=== PATIENT | male | born 1985 | race African-American/Black ===

== ENCOUNTER 2024-05-18 15:18 | Emergency (ER) | payer MEDICAID, SELFPAY ==
[2024-05-18] VITALS (7 sets, daily range): BP systolic 137–179; BP diastolic 88–110; PULSE 96–118; RESP 20–22; TEMP 36.3; O2SAT 97–100; BMI 30.2
[2024-05-18] MEDS: 0.9 % SODIUM CHLORIDE 1000 ml 1,000 ML IV ×2 (15:45→17:15)
[2024-05-18 15:49] LABS: Appearance Urine Clear (Clear); Bilirubin Urine Negative (Negative); Blood Urine Negative (Negative); Color Urine Yellow (Yellow); Glucose Urine 2+ (Negative); Ketones Urine Negative (Negative); Leukocyte Esterase Urine Negative (Negative); Nitrite Urine Negative (Negative); Protein Urine Negative (Negative); Urobilinogen Urine 0.2 (0.2-1.0); pH Urine 5.5 (5.0-8.5)
--- NOTE | 2024-05-18 15:49 | ED.GENADULT ---
HPI - General Adult General Chief complaint: Diabetic Related Problem Stated complaint: diabetic, blood sugar issue, high blood pressure Time Seen by Provider: 05/18/24 15:24 History of Present Illness HPI narrative: This 38-year-old male has type 1 diabetes depended on insulin. He states that he has been taking his insulin but over the past couple days he has had nausea, vomiting, and diarrhea. He reports dry mouth and increased urinating. He states that he does normally check his glucose but his glucometer is not working. He arrives here with glucose at 544. He has increased heart rate but is not doing any Kussmaul breathing. Related Data Home Medications ?Medication ?Instructions ?Recorded ?Confirmed amlodipine 10 mg tablet 10 mg PO DAILY 05/18/24 05/18/24 insulin aspart U-100 10 - 15 sliding scale dose .ROUTE 05/18/24 insulin glargine 100 unit/mL (3 15 unit subcut QPM 05/18/24 05/18/24 mL) subcutaneous pen (Lantus Solostar U-100 Insulin) losartan 100 1 tab PO DAILY 05/18/24 05/18/24 mg-hydrochlorothiazide 25 mg tablet (Hyzaar) Allergies Allergy/AdvReac Type Severity Reaction Status Date / Time No Known Drug Allergies Allergy Verified 05/18/24 15:30 Review of Systems Status of ROS: Reports: 10 or more systems reviewed and unremarkable except as noted in History and below Narrative: Constitutional: No fevers, no weight gain or loss. Eyes: No discharge. No vision changes. HENT: No congestion, no sore throat, no ear pain. Dry mouth. Cardiovascular: No chest pain, no palpitations. Respiratory: No shortness of breath, no wheezes, no cough. Gastrointestinal: No abdominal pain. Vomiting and diarrhea. Genitourinary: No hematuria. Increased frequency of urinating. Musculoskeletal: Normal range of motion. Skin: No rashes, no pruritis. Neurological: No dizziness, weakness, sensory change, speech change. Endo/Heme/Allergies: No bruising or bleeding. No polydipsia. Pysch: no suicidality, no anxiety, no insomnia. All other systems reviewed and are negative. Exam Narrative: Exam Narrative: Constitutional: Well-developed, well-nourished, no acute distress. HEENT: Normocephalic, atraumatic. Neck: Normal range of motion. Nontender. Supple. Heart: Regular. No murmurs. Tachycardia. Intact distal pulses. Lungs: Clear to auscultation. No chest discomfort. No wheezes, rhonchi, or rales. Abdomen: Normal bowel sounds. Nontender. No rebound tenderness. Genitalia: Deferred. Back: No midline tenderness. Normal range of motion. Extremities: Normal range of motion. No injury. Skin: Intact. No rash. Warm. No erythema or pallor. Neurologic: No altered sensation. No weakness. Alert and oriented. Psychiatric: No suicidality. No anxiety or depression. No insomnia. Nursing notes and vitals signs are reviewed. Const: Vital Signs, click to edit/add: Vital Signs - 24 hr 05/18/24 15:25 05/18/24 15:50 05/18/24 16:01 Temperature 97.3 F L Pulse Rate 108 H 110 H Pulse Rate [Pulse Oximeter] 118 H Respiratory Rate 20 Blood Pressure 179/89 H 172/110 H Blood Pressure [Ri ght Upper Arm] 173/88 H Pulse Oximetry 97 99 100 Oxygen Delivery Me thod Room Air 05/18/24 16:31 05/18/24 17:01 05/18/24 17:30 Temperature Pulse Rate 106 H 109 H 101 H Pulse Rate [Pulse Oximeter] Respiratory Rate 22 Blood Pressure 154/99 H 137/91 H Blood Pressure [Ri ght Upper Arm] Pulse Oximetry 100 99 100 Oxygen Delivery Me thod Course Vital Signs Vital signs: Initial Vital Signs Temperature 97.3 F L 05/18/24 15:25 Temperature Source Temporal Artery Scan 05/18/24 15:25 Pulse Rate 118 H 05/18/24 15:25 Respiratory Rate 20 05/18/24 15:25 Blood Pressure 173/88 H 05/18/24 15:25 Blood Pressure Mean 116 H 05/18/24 15:25 Blood Pressure Position Sitting 05/18/24 15:25 Pulse Oximetry 97 05/18/24 15:25 Oxygen Delivery Method Room Air 05/18/24 15:25 Vital Signs Temperature 97.3 F L 05/18/24 15:25 Pulse Rate 118 H 05/18/24 15:25 Respiratory Rate 20 05/18/24 15:25 Blood Pressure 173/88 H 05/18/24 15:25 Pulse Oximetry 97 05/18/24 15:25 Oxygen Delivery Method Room Air 05/18/24 15:25 Temperature 97.3 F L 05/18/24 15:25 Pulse Rate 101 H 05/18/24 17:30 Respiratory Rate 22 05/18/24 16:31 Blood Pressure 137/91 H 05/18/24 17:01 Pulse Oximetry 100 05/18/24 17:30 Oxygen Delivery Method Room Air 05/18/24 15:25 Medications Administered Medications: Generic Name Dose Route Start Last Admin Trade Name Freq PRN Reason Stop Dose Admin Sodium Chloride 1,000 mls @ 1,000 mls/hr 05/18/24 17:15 05/18/24 17:15 0.9 % Sodium Chloride 1000 Ml IV 05/18/24 18:14 1,000 mls/hr .Q1H CARTER Administration Discontinued Medications Generic Name Dose Route Start Last Admin Trade Name Freq PRN Reason Stop Dose Admin Sodium Chloride 1,000 mls @ 1,000 mls/hr 05/18/24 16:00 05/18/24 16:45 0.9 % Sodium Chloride 1000 Ml IV 05/18/24 16:59 Infused .Q1H CARTER Infusion Insulin Human Regular 10 unit 05/18/24 15:47 05/18/24 15:55 Insulin Regular, Human 100 Unit/Ml Vial IVP 05/18/24 15:48 10 unit ONCE ONE Administration Ondansetron HCl 4 mg 05/18/24 15:47 05/18/24 15:56 Ondansetron 2 Mg/Ml Inj IVP 05/18/24 15:48 4 mg ONCE ONE Administration Medical Decision Making [facility] Narrative Medical decision making narrative: This patient comes in reporting vomiting and diarrhea along with elevated glucose. He does arrive with increased heart rate at 118 beats per minute. An IV was established where he did receive a total of 2 L of normal saline. His venous blood glass shows normal pH and his bicarb just slightly down at 18. He is not showing signs of ketoacidosis. His initial glucose was around 570. He did received 10 units of regular insulin and the glucose is recheck to after getting a L of fluids in returned at 185. The patient states that he is feeling better. He is interested in taking some food so he did receive something to eat here. He is okay to be discharged home. Lab Data Labs: Lab Results 05/18/24 05/18/24 05/18/24 Range/Units 15:25 15:40 15:49 WBC 11.24 H (4.50-11.00) K/uL RBC 4.67 (4.30-5.90) m/uL Hgb 14.9 (13.5-17.5) gm/dL Hct 42.5 (37.0-53.0) % MCV 91 (80-100) fL MCH 32 (26-34) pg MCHC 35 (32-36) gm/dL RDW Coeff of Marcio 13.1 (11.5-15.5) % Plt Count 551 H (140-440) K/uL Neut % (Auto) 82.6 H (42.0-72.0) % Lymph % (Auto) 8.8 L (20-44) % Ada % (Auto) 7.1 (0.0-11.0) % Eos % (Auto) 0.4 (0.0-7.0) % Baso % (Auto) 0.7 (0.0-3.0) % Neut # (Auto) 9.30 H (1.7-7.0) K/uL Lymph # (Auto) 1.00 (0.90-2.90) K/uL Ada # (Auto) 0.80 (0.00-0.90) K/UL Eos # (Auto) 0.00 (0.00-0.50) K/uL Baso # (Auto) 0.10 (0.00-0.30) K/uL Abs Immat Gran (auto) 0.00 (0.00-0.30) K/uL Imm/Tot Granulo (auto) 0.4 % VBG pH 7.420 (7.32-7.43) VBG pCO2 35 L (40-50) mmHG VBG pO2 82.6 H (25-47) mmHG VBG HCO3 23 (21-28) mmol/L Sodium 127 L (135-149) mmol/L Potassium 5.3 H (3.6-5.1) mmol/L Chloride 94 L (96-114) mmol/L Carbon Dioxide 18 L (20-32) mmol/L Anion Gap 15 (7-15) mEq/L BUN 22 (5-24) mg/dL Creatinine 0.8 (0.5-1.5) mg/dL Estimated Creat Clear 134.72 Estimated GFR 115 ml/min Glucose 578 H* (60-115) mg/dL Calcium 8.5 (8.4-10.6) mg/dL Magnesium 2.0 (1.5-2.6) mg/dL Urine Color Yellow (Yellow) Urine Appearance Clear (Clear) Urine pH 5.5 (5.0-8.5) Ur Specific [place] 1.010 (1.000-1.030) Urine Protein Negative (Negative) Urine Glucose (UA) 2+ A (Negative) Urine Ketones Negative (Negative) Urine Blood Negative (Negative) Urine Nitrite Negative (Negative) Urine Bilirubin Negative (Negative) Urine Urobilinogen 0.2 (0.2-1.0) Ur Leukocyte Esterase Negative (Negative) Urine RBC 0-2 (0-2) Urine WBC 0-2 (0-5) Ur Squamous Epith Cells None (None-Few) Urine Bacteria None (None) POC Glucose 544 H* (60-115) mg/dl 05/18/24 05/18/24 Range/Units 15:49 17:05 WBC (4.50-11.00) K/uL RBC (4.30-5.90) m/uL Hgb (13.5-17.5) gm/dL Hct (37.0-53.0) % MCV (80-100) fL MCH (26-34) pg MCHC (32-36) gm/dL RDW Coeff of Marcio (11.5-15.5) % Plt Count (140-440) K/uL Neut % (Auto) (42.0-72.0) % Lymph % (Auto) (20-44) % Ada % (Auto) (0.0-11.0) % Eos % (Auto) (0.0-7.0) % Baso % (Auto) (0.0-3.0) % Neut # (Auto) (1.7-7.0) K/uL Lymph # (Auto) (0.90-2.90) K/uL Ada # (Auto) (0.00-0.90) K/UL Eos # (Auto) (0.00-0.50) K/uL Baso # (Auto) (0.00-0.30) K/uL Abs Immat Gran (auto) (0.00-0.30) K/uL Imm/Tot Granulo (auto) % VBG pH (7.32-7.43) VBG pCO2 (40-50) mmHG VBG pO2 (25-47) mmHG VBG HCO3 (21-28) mmol/L Sodium (135-149) mmol/L Potassium (3.6-5.1) mmol/L Chloride (96-114) mmol/L Carbon Dioxide (20-32) mmol/L Anion Gap (7-15) mEq/L BUN (5-24) mg/dL Creatinine (0.5-1.5) mg/dL Estimated Creat Clear Estimated GFR ml/min Glucose (60-115) mg/dL Calcium (8.4-10.6) mg/dL Magnesium Cancelled (1.5-2.6) mg/dL Urine Color (Yellow) Urine Appearance (Clear) Urine pH (5.0-8.5) Ur Specific [place] (1.000-1.030) Urine Protein (Negative) Urine Glucose (UA) (Negative) Urine Ketones (Negative) Urine Blood (Negative) Urine Nitrite (Negative) Urine Bilirubin (Negative) Urine Urobilinogen (0.2-1.0) Ur Leukocyte Esterase (Negative) Urine RBC (0-2) Urine WBC (0-5) Ur Squamous Epith Cells (None-Few) Urine Bacteria (None) POC Glucose 185 H (60-115) mg/dl Discharge Plan Discharge Clinical Impression: Gastroenteritis, Hyperglycemia Patient Disposition: Home, Self-Care Condition: Improved Additional Instructions: Continue current plans. Follow up with MD return if worsening. Prescriptions: No Action losartan-hydrochlorothiazide [Hyzaar] 100-25 mg tablet 1 tab PO DAILY amlodipine 10 mg tablet 10 mg PO DAILY insulin aspart U-100 [Novolog FlexPen U-100 Insulin] 10 - 15 sliding scale dose .ROUTE insulin glargine [Lantus Solostar U-100 Insulin] 100 unit/mL (3 mL) insulin pen 15 unit subcut QPM Follow Up/Referrals: Provider,Not a Local [Primary Care Provider] - Stand Alone Forms: MyHealth Info Instructions
[2024-05-18 15:54] LABS: HCO3 VBG 23 mmol/L (21-28); PCO2 VBG 35 mmHG (40-50); PO2 VBG 82.6 mmHG (25-47)
[2024-05-18 15:55] LABS: Basophils Percent Auto 0.7 % (0.0-3.0); Eosinophils Percent Auto 0.4 % (0.0-7.0); Hematocrit 42.5 % (37.0-53.0); Hemoglobin* 14.9 gm/dL (13.5-17.5); Immature Granulocytes Pct Auto 0.4 %; Lymphocytes Percent Auto 8.8 % (20-44); Mean Corpuscular HGB Conc 35 gm/dL (32-36); Mean Corpuscular Hemoglobin 32 pg (26-34); Mean Corpuscular Volume 91 fL (80-100); Monocytes Percent Auto 7.1 % (0.0-11.0); Neutrophils Percent Auto 82.6 % (42.0-72.0); Platelet Count* 551 K/uL (140-440); RDW Coefficient of Variation % 13.1 % (11.5-15.5); Red Blood Count 4.67 m/uL (4.30-5.90); White Blood Count* 11.24 K/uL (4.50-11.00)
[2024-05-18] MEDS: INSULIN REGULAR, HUMAN 100 UNIT/ML VIAL 10 UNIT IVP (15:55)
[2024-05-18 15:56] LABS: Slide Review Reflex No
[2024-05-18] MEDS: ONDANSETRON 2 MG/ML inj 4 MG IVP (15:56)
[2024-05-18 16:09] LABS: Chloride* 94 mmol/L (96-114); Potassium* 5.3 mmol/L (3.6-5.1); Sodium* 127 mmol/L (135-149)
[2024-05-18 16:10] LABS: RBC Urine 0-2 (0-2); WBC Urine 0-2 (0-5)
[2024-05-18 16:12] LABS: Anion Gap 15 mEq/L (7-15); Blood Urea Nitrogen* 22 mg/dL (5-24); Carbon Dioxide* 18 mmol/L (20-32); Creatinine* 0.8 mg/dL (0.5-1.5); Est. Creatinine Clearance* 134.72; Estimated Glomerular Filt Rate 115 ml/min
[2024-05-18 16:13] LABS: Calcium* 8.5 mg/dL (8.4-10.6)
[2024-05-18 16:16] LABS: Glucose* 578 mg/dL (60-115)
[2024-05-18 16:17] LABS: Glucose, Point-of-Care* 544 mg/dl (60-115)
--- OUTSIDE RECORDS SUMMARY | 2024-05-18 16:36 | XMS_ITS | Encounter Summary ---
Author Organization [facility] Address [address] [place] [id number] Care Team Providers Care Cnc Machinist Name Role Phone Orin Monk MD Unavailable [phone] Alicia Corbett MD Unavailable Guillermina Victoria RN Unavailable Liz Hendrix RD Unavailable [phone] Rowan Barry MD Unavailable Guillermina Victoria RN Unavailable No Ref-Primary, Physician Primary Care Provider Meliza Buchanan PA-C Unavailable [phone] Александр Scott MD Unavailable Harmony Maldonado MD Unavailable [phone] Reason for Visit * Reason Onset Date Comments Glucose 05/16/2024 Glucose data for 05/18 appt Encounter Details Date Type Department Care Team (Late st Contact Info) Description 05/16/2024 Telephone [facility] [address] [place] [address] Rowan Barry MD [address] [place] [id number] Glucose (Glucose data for 05/18 appt ) Social History Tobacco Use Types Packs/Day Years Used Date Smoking Tobacco: Former Cigarettes 0.3 15 1 05/28/1998 - 03/27/2014 Smokeless Tobacco: Former Alcohol Use Standard Drinks/Week Comments Not Currently 0 (1 standard drink = 0.6 oz pure alcohol) used to drink a couple beers infrequently but has now stopped PHQ-2 Answer Date Recorded PHQ-2 Score 0 04/28/2018 Adolescent Education Answer Date Record ed Getting School Help Needed Not on file 02/03 Sex and Gender Information Value Date Recorded Sex Assigned at Not on file Legal Sex Male 4:39 AM SEAM CHECKER Gender Identity Not on file Sexual Orientation Not on file documented as of this encounter Miscellaneous Notes * Telephone Encounter - Aleksandra Infante CMA - 05/17/2024 10:49 AM SEAM CHECKER Spoke with patient. Pt is out of states and will be unable to keep virtual appt for 05/18/24. Pt requested to cancel appt. Appt canceled per patient's request. Pt would like a call back to reschedule.Forwarded message to clinic coordinators. Aleksandra Infante CMA on 05/17/2024 at 10:50 AM CHECKER CHECKER * Telephone Encounter - Aleksandra Infante CMA - 05/16/2024 1:50 PM SEAM CHECKER Called patient and no answer. Unable to LVM. VM full. Patient has an appointment on 05/18/24 . Need to collect the last 14 days worth of blood sugar readings to prepare for patient's visit. Aleksandra Infante MA CHECKER documented in this encounter Plan of Treatment Not on file documented as of this encounter Visit Diagnoses Not on filedocumented in this encounter Care Teams Cnc Machinist Relationship Specialty Start Date End Date No Ref-Primary, Physician PCP - General 02/24/23 [place] [address] [place] [address] Internal Medicine 03/27/16 Alicia Corbett MD [address] [place] [address] MD Ophthalmology 03/27/16 Guillermina Victoria, RN [address] [place] [address] [id number] Diabetes Education 03/27/[address] [place] [address] [id number] Registered Dietitian Nutrition 03/27/16 Rowan Barry MD [address] [place] [address] [id number] INTERNAL MEDICINE - ENDOCRINOLOGY, DIABETES & METABOLISM 03/27/16 Guillermina Victoria, RN [address] [place] [address] [id number] Birth Certificate Clerk Diabetes Education 12/26/20 Meliza Buchanan PA-C [address] [place] [address] Physician Flexo Operator Dermatology 04/29/23 Александр Scott MD [facility] [address] [place], [place] [address] Referring Physician Emergency Medicine 04/29/23 aHrmony Maldonado MD [address] [place] [id number] Hospitalist Internal Medicine 11/23/23 documented as of this encounter
--- OUTSIDE RECORDS SUMMARY | 2024-05-18 16:36 | XMS_ITS | Referral Summary ---
Author Organization [facility] Address [address] [place] [id number] Care Team Providers Care Museum Librarian Name Role Phone Orin Monk MD Unavailable Alicia Corbett MD Unavailable [phone] Guillermina Victoria RN Unavailable [phone] Unavailable [phone] Rowan Barry MD Unavailable Guillermina Victoria RN Unavailable No Ref-Primary, Physician Primary Care Provider Meliza Buchanan PA-C Unavailable [phone] Александр Scott MD Unavailable Harmony Maldonado MD Unavailable [phone] Encounters Date Type Department Care Team Description 05/16/[address] [facility] [address] [address] Rowan Barry MD Glucose (Glucose data for 05/18 appt ) 05/06/[address] [facility] [address] [address] Aleksandra Infante CMA 04/28/2024 Travel 04/28/2024 3:22 PM MODEL BUILDER DISPLAY - 04/28/2024 10:51 PM MODEL BUILDER DISPLAY Emergency [facility] [address] [place] [address] Santos Berry MD Goodman, Taye Padron MD Hyperglycemia; Nausea and vomiting, unspecified vomiting type; Hypertension, unspecified type; Encounter for medication refill Discharge Disposition: Home or Self Care from Last 3 Months Allergies No known active allergies Medications blood glucose monitoring (ACCU-CHEK FASTCLIX) lancetsIndicati ons:Type 1 diabetes mellitus without complication (H) Use to test blood sugar 3 times daily or as directed. Ok to substitute alternative if insurance prefers. 1 Box prn 016 Active blood glucose monitoring (ACCU-CHEK PEPPER SMARTVIEW) meter device kitIndications: Type 1 diabetes mellitus without complication (H) Use to test blood sugar 3 times daily or as directed. Ok to substitute alternative if insurance prefers. 1 kit 0 016 Active blood glucose monitoring (ACCU-CHEK SMARTVIEW) test stripIndication s:Type 1 diabetes mellitus without complication (H) Use to test blood sugar 3 times daily or as directed. Ok to substitute alternative if insurance prefers. 100 strip prn 016 Active ASPIRIN NOT PRESCRIBED (INTENTIONAL) Antiplatelet medication not prescribed intentionally due to Not indicated based on age Active STATIN NOT PRESCRIBED, INTENTIONAL, Statin not prescribed intentionally due to age Active insulin syringe-needle U-100 (BD INSULIN SYRINGE ULTRAFINE) 30G X 1/2 0.5 ML miscellaneousIn dications:Type 1 diabetes mellitus without complication (H) Use as directed. 100 each 3 024 Active insulin glargine (LANTUS PEN) 100 UNIT/ML penIndications: Type 1 diabetes mellitus without complication (H) Inject 20 Units subcutaneously every morning. 15 mL 1 024 Active pantoprazole (PROTONIX) 40 MG EC tabletIndicatio ns:Vomiting, unspecified vomiting type, unspecified whether nausea present Take 1 tablet (40 mg) by mouth every morning (before breakfast). 30 tablet 024 Active amLODIPine (NORVASC) 10 MG tablet Take 1 tablet (10 mg) by mouth daily. 30 tablet 025 Active losartan-hydroc hlorothiazide (HYZAAR) 100-25 MG tablet Take 1 tablet by mouth daily. 30 tablet 025 Active insulin aspart (NOVOLOG PEN) 100 UNIT/ML pen Inject 1 Units subcutaneously 3 times daily (with meals). 15 mL 025 Active amLODIPine (NORVASC) 5 MG tabletIndicatio ns:Hypertension , unspecified type Take 2 tablets (10 mg) by mouth daily. 60 tablet 024 2024 Discontinued insulin aspart (NOVOLOG FLEXPEN) 100 UNIT/ML penIndications: Type 1 diabetes mellitus without complication (H) Take 1 unit per 10 grams of carbs plus 1 unit if between 150-170 and 2 units if over 170. Three times with meals 12 mL 3 024 2024 Discontinued losartan-hydroc hlorothiazide (HYZAAR) 100-25 MG tabletIndicatio ns:Type 1 diabetes mellitus without complication (H) Take 1 tablet by mouth daily. 30 tablet 024 2024 Discontinued Active Problems Problem Noted Date Diagnosed Date Hyponatremia 01/05/2024 Diabetic ketoacidosis withou t coma associated with type 1 diabetes mellitus 11/19/2023 Vomiting, unspecified vomiti ng type, unspecified whether nausea present 11/19/2023 Hyperglycemia 12/21/2020 Hypertension, unspecified type 12/21/2020 Hyperkalemia 12/21/2020 DKA (diabetic ketoacidoses) 05/02/2019 Overview (01/18/2021): Replacing diagnoses that were inactivated after the 01/18/2021 regulatory import. 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 Provider to review Immunizations Name Administration Dates Next Due HEPA 08/06/2015 Influenza (IIV3) PF 03/27/2016 Meningococcal ACWY (Menveo ) 08/06/2015 Pneumococcal 23 valent 03/27/2016 TD,PF 7+ (Tenivac) 04/20/2003 TDAP Vaccine (Adacel) 08/06/2015 Typhoid IM 08/06/2015 Yellow Fever 08/06/2015 Social History Tobacco Use Types Packs/Day Years [...] on file Legal Sex Male 4:39 AM MODEL BUILDER DISPLAY Gender Identity Not on file Sexual Orientation Not on file Last Filed Vital Signs Vital Sign Reading Time Taken Comments Blood Pressure 191/109 04/28/2024 10:49 PM MODEL BUILDER DISPLAY Pulse 105 04/28/2024 10:00 PM MODEL BUILDER DISPLAY Temperature 36.9 C (98.5 F) 04/28/2024 3:21 PM MODEL BUILDER DISPLAY Respiratory Rate 18 04/28/2024 5:31 PM MODEL BUILDER DISPLAY Oxygen Saturation 98% 04/28/2024 10: 00 PM MODEL BUILDER DISPLAY Inhaled Oxygen Concentration - - Weight 103.7 kg (228 lb 9.9 oz) 04/28/2024 3:18 PM MODEL BUILDER DISPLAY Height 182.9 cm (6') 04/28/2024 3:18 PM MODEL BUILDER DISPLAY Body Mass Index 31.01 04/28/2024 3:18 PM MODEL BUILDER DISPLAY Plan of Treatment Not on file Procedures Procedure Name Priority Date/Time Associated Diagnosis Comments LACTIC ACID WHOLE BLOOD STAT 04/28/2024 9:02 PM MODEL BUILDER DISPLAY ISTAT GASES LACTATE VENOUS POCT STAT 04/28/2024 6:35 PM MODEL BUILDER DISPLAY ISTAT BASIC CHEM ICA HEMATOCRIT POCT STAT 04/28/2024 6:35 PM MODEL BUILDER DISPLAY EKG 12-LEAD, TRACING ONLY STAT 04/28/2024 3:34 PM MODEL BUILDER DISPLAY CBC WITH PLATELETS & DIFFERENTIAL STAT 04/28/2024 3:32 PM MODEL BUILDER DISPLAY TROPONIN T, HIGH SENSITIVITY STAT 04/28/2024 3:32 PM MODEL BUILDER DISPLAY EXTRA RED TOP TUBE STAT 04/28/2024 3: 32 PM MODEL BUILDER DISPLAY EXTRA BLUE TOP TUBE STAT 04/28/2024 3 :32 PM MODEL BUILDER DISPLAY CBC WITH PLATELETS AND DIFFERENTIAL STAT 04/28/2024 3:32 PM MODEL BUILDER DISPLAY EXTRA TUBE STAT 04/28/2024 3:32 PM MODEL BUILDER DISPLAY BLOOD GAS VENOUS STAT 04/28/2024 3:32 PM MODEL BUILDER DISPLAY KETONE BETA-HYDROXYBUTYRATE QUANTITATIVE, RAPID STAT 04/28/2024 3:32 PM MODEL BUILDER DISPLAY BASIC METABOLIC PANEL STAT 04/28/2024 3:32 PM MODEL BUILDER DISPLAY GLUCOSE BY METER STAT 04/28/2024 3:26 PM MODEL BUILDER DISPLAY HEMOGLOBIN A1C STAT 01/05/2024 7:36 PM CDT ALBUMIN RANDOM URINE QUANTITATIVE Routine 03/27/2016 9:52 AM MODEL BUILDER DISPLAY Screening for diabetic peripheral neuropathy Need for prophylactic vaccination against Streptococcus pneumoniae (pneumococcus) LIPID PROFILE Routine 03/25/2016 10:01 AM MODEL BUILDER DISPLAY Type 1 diabetes mellitus without complication (H) from Last 3 Months or Most Recently Relevant to Health Maintenance Results * Lactic acid whole blood (04/28/2024 9:02 PM MODEL BUILDER DISPLAY) Lactic Acid 1.5 0.7 - 2.0 mmol/L 04/28/2024 9:10 PM MODEL BUILDER DISPLAY [facility] Blood BLOOD SPECIMEN / Unknown Venipuncture / Unknown 04/28/2024 9:02 PM MODEL BUILDER DISPLAY 04/28/2024 9:06 PM MODEL BUILDER DISPLAY us Santos Berry MD LAB - BLOOD ORDERABLES Final Res ult LABORATORY [facility] [address] Lab (1st floor, no room number) [place] [address], [facility] * (ABNORMAL) iStat Basic Chem ICA Hematocrit, POCT (04/28/2024 6:35 PM MODEL BUILDER DISPLAY) Pathologist [facility] Chloride POCT 98 94 - 109 mmol/L 04/28/2024 6:42 PM MODEL BUILDER DISPLAY LABORATORY POC Potassium POCT 5.7(H) 3.4 - 5.3 mmol/L 04/28/2024 6:42 PM MODEL BUILDER DISPLAY [facility] POC Sodium POCT 135 135 - 145 mmol/L 04/28/2024 6:42 PM MODEL BUILDER DISPLAY [facility] POC UREA NITROGEN POCT 22 7 - 30 mg/dL 04/28/2024 6:42 PM MODEL BUILDER DISPLAY [facility] POC Calcium, Ionized Whole Blood POCT 4.3(L) 4.4 - 5.2 mg/dL 04/28/2024 6:42 PM MODEL BUILDER DISPLAY [facility] POC Glucose Whole Blood POCT 122(H) 70 - 99 mg/dL 04/28/2024 6:42 PM MODEL BUILDER DISPLAY [facility] POC Anion Gap POCT 16.0(H) 3.0 - 14.0 mmol/L 04/28/2024 6:42 PM MODEL BUILDER DISPLAY [facility] POC Hemoglobin POCT 15.3 13.3 - 17.7 g/dL 04/28/2024 6:42 PM MODEL BUILDER DISPLAY LABORATORY POC Hematocrit POCT 45 40 - 53 % 6:42 PM MODEL BUILDER DISPLAY LABORATORY POC Creatinine POCT 0.8 0.7 - 1.3 mg/dL 04/28/2024 6:42 PM MODEL BUILDER DISPLAY LABORATORY POC TOTAL CO2 POCT 28 20 - 32 mmol/L 04/28/2024 6:42 PM MODEL BUILDER DISPLAY LABORATORY POC Blood, venous BLOOD SPECIMEN / Unknown 04/28/2024 6:35 PM MODEL BUILDER DISPLAY 04/28/2024 6:42 PM MODEL BUILDER DISPLAY Santos Berry MD LAB - BEAKER POCT Final Result LABORATORY POC [facility] [address] Lab (1st floor, no room number) [place] [address] * (ABNORMAL) iStat Gases (lactate) venous, POCT (04/28/2024 6:35 PM MODEL BUILDER DISPLAY) Lactic Acid POCT 4.6(HH) <=2.0 mmol/L 04/28/2024 6:59 PM MODEL BUILDER DISPLAY [facility] POC Comment:--- Bicarbonate Venous POCT 31(H) 21 - 28 mmol/L 04/28/2024 6:59 PM MODEL BUILDER DISPLAY [facility] POC Comment:--- O2 Sat, Venous POCT 35(L) 70 - 75 % 04/28/2024 6:59 PM MODEL BUILDER DISPLAY [facility] POC Comment:--- pCO2 Venous POCT 52(H) 40 - 50 mm Hg 04/28/2024 6:59 PM MODEL BUILDER DISPLAY [facility] POC Comment:--- pH Venous POCT 7.38 7.32 - 7.43 04/28/2024 6:59 PM MODEL BUILDER DISPLAY [facility] POC Comment:--- pO2 Venous POCT 22(L) 25 - 47 mm Hg 04/28/2024 6:59 PM MODEL BUILDER DISPLAY [facility] POC Comment:--- Blood, venous BLOOD SPECIMEN / Unknown 04/28/2024 6:35 PM MODEL BUILDER DISPLAY 04/28/2024 6:59 PM MODEL BUILDER DISPLAY us Santos Berry MD LAB - BEAKER POCT Final Result [facility] POC [facility] [address] [facility] Lab (1st floor, no room number) [place] [address] * EKG 12 lead (04/28/2024 3:34 PM MODEL BUILDER DISPLAY) Systolic Blood Pressure mmHg RADIOLOGY RESULTS Diastolic Blood Pressure mmHg RADIOLOGY RESULTS Ventricular Rate 115 BPM RAD IOLOGY RESULTS Atrial Rate 115 BPM RADIOLOG Y RESULTS ID Interval 150 ms RADIOLOG Y RESULTS QRS Duration 84 ms RADIOLO GY RESULTS QT 312 ms RADIOLOGY RESULTS QTc 431 ms RADIOLOGY RESULTS P Mears 43 degrees RADIOLOGY RESULTS R AXIS -14 degrees RADIOLOGY RESULTS T Mears 40 degrees RADIOLOGY RESULTS Interpretation ECG Sinus tachycardia Otherwise normal ECG When compared with ECG of 18-Sep-2024 01:01, No significant change was found Unconfirmed report - interpretation of this ECG is computer generated - see medical record for final interpretation Confirmed by - EMERGENCY ROOM, PHYSICIAN ([id number]), production editor NATALIA NORWOOD ([id number]) on 04/29/2024 7:52:59 AM RADIOLOGY RESULTS 04/28/2024 3:34 PM MODEL BUILDER DISPLAY 04/29/2024 7:52 AM MODEL BUILDER DISPLAY us Santos Berry MD ECG ORDERABLES Edited Result - Final RADIOLOGY RESULTS * Extra Red Top Tube (04/28/2024 3:32 PM MODEL BUILDER DISPLAY) Hold Specimen [facility] 04/28/2024 4:46 PM MODEL BUILDER DISPLAY LABORATORY Blood BLOOD SPECIMEN / Unknown Venipuncture / Unknown 04/28/2024 3:32 PM MODEL BUILDER DISPLAY 04/28/2024 3:42 PM MODEL BUILDER DISPLAY us Santos Berry MD LAB - BLOOD ORDERABLES Final Res ult Performing Organization Address [facility]/ZIP Co de Phone Number [facility] [address] Lab (1st floor, no room number) [address] * Extra Blue Top Tube (04/28/2024 3:32 PM MODEL BUILDER DISPLAY) Hold Specimen [facility] 04/28/2024 4:46 PM MODEL BUILDER DISPLAY LABORATORY Blood BLOOD SPECIMEN / Unknown Venipuncture / Unknown 04/28/2024 3:32 PM MODEL BUILDER DISPLAY 04/28/2024 3:42 PM MODEL BUILDER DISPLAY us aSntos Berry MD LAB - BLOOD ORDERABLES Final Res ult Performing Organization Address City/[facility]/ZIP Co de Phone Number [facility] [address] Lab (1st floor, no room number) [address] * CBC with platelets and differential (04/28/2024 3:32 PM MODEL BUILDER DISPLAY) [facility] WBC Count 8.0 4.0 - 11.0 10e3/uL 04/28/2024 3:45 PM MODEL BUILDER DISPLAY [facility] RBC Count 4.92 4.40 - 5.90 10e6/uL 04/28/2024 3:45 PM MODEL BUILDER DISPLAY [facility] Hemoglobin 15.6 13.3 - 17.7 g/dL 04/28/2024 3:45 PM MODEL BUILDER DISPLAY [facility] Hematocrit 44.5 40.0 - 53.0 % 04/28/2024 3:45 PM MODEL BUILDER DISPLAY [facility] MCV 90 78 - 100 fL 04/28/2024 3:45 PM MODEL BUILDER DISPLAY [facility] MCH 31.7 26.5 - 33.0 pg 04/28/2024 3:45 PM MODEL BUILDER DISPLAY [facility] MCHC 35.1 31.5 - 36.5 g/dL 04/28/2024 3:45 PM MODEL BUILDER DISPLAY [facility] RDW 14.6 10.0 - 15.0 % 04/28/2024 3:45 PM MODEL BUILDER DISPLAY [facility] Platelet Count 364 150 - 450 10e3/uL 04/28/2024 3:45 PM MODEL BUILDER DISPLAY [facility] % Neutrophils 81 % 04/28/2024 3:45 PM MODEL BUILDER DISPLAY [facility] % Lymphocytes 12 % 04/28/2024 3:45 PM MODEL BUILDER DISPLAY [facility] % Monocytes 6 % 04/28/2024 3:45 PM MODEL BUILDER DISPLAY [facility] % Eosinophils 0 % 04/28/2024 3:45 PM MODEL BUILDER DISPLAY [facility] % Basophils 1 % 04/28/2024 3:45 PM MODEL BUILDER DISPLAY [facility] % Immature Granulocytes 0 % 04/28/2024 3:45 PM MODEL BUILDER DISPLAY [facility] NRBCs per 100 WBC 0 <1 /100 025 3:45 PM MODEL BUILDER DISPLAY [facility] Absolute Neutrophils 6.4 1.6 - 8.3 10e3/uL 04/28/2024 3:45 PM MODEL BUILDER DISPLAY [facility] Absolute Lymphocytes 0.9 0.8 - 5.3 10e3/uL 04/28/2024 3:45 PM MODEL BUILDER DISPLAY [facility] Absolute Monocytes 0.5 0.0 - 1.3 10e3/uL 04/28/2024 3:45 PM MODEL BUILDER DISPLAY [facility] Absolute Eosinophils 0.0 0.0 - 0.7 10e3/uL 04/28/2024 3:45 PM MODEL BUILDER DISPLAY [facility] Absolute Basophils 0.1 0.0 - 0.2 10e3/uL 04/28/2024 3:45 PM MODEL BUILDER DISPLAY [facility] Absolute Immature Granulocytes 0.0 <=0.4 10e3/uL 04/28/2024 3:45 PM MODEL BUILDER DISPLAY [facility] Absolute NRBCs 0.0 10e3/uL 04/28/2024 3:45 PM MODEL BUILDER DISPLAY [facility] Blood BLOOD SPECIMEN / Unknown Venipuncture / Unknown 04/28/2024 3:32 PM MODEL BUILDER DISPLAY 04/28/2024 3:42 PM MODEL BUILDER DISPLAY us Santos Berry MD LAB - BLOOD ORDERABLES Final Res ult LABORATORY [facility] [address] [facility] [employer] Lab (1st floor, no room number) [place] [address] * Troponin T, High Sensitivity (04/28/2024 3:32 PM MODEL BUILDER DISPLAY) [facility] Troponin T, High Sensitivity 10 <=22 ng/L 04/28/2024 4:06 PM MODEL BUILDER DISPLAY LABORATORY Comment: Either a High Sensitivity Troponin T baseline (0 hours) value = 100 ng/L, or an increase in High Sensitivity Troponin T = 7 ng/L at 2 hours compared to 0 hours (2-0 hours), suggests myocardial injury, and urgent clinical attention is required. If the 2-0 hours increase is <7 ng/L, a High Sensitivity Troponin T result above gender-specific reference ranges warrants further evaluation. Recommendations for further evaluation include correlation with clinical decision-making tool (e.g., HEART), a 3rd High Sensitivity Troponin T test 2 hours after the 2nd (a 20% change from baseline would represent concern), admission for observation, close PCC/cardiology follow-up, or urgent outpatient provocative testing. Blood BLOOD SPECIMEN / Unknown Venipuncture / Unknown 04/28/2024 3:32 PM MODEL BUILDER DISPLAY 04/28/2024 3:42 PM MODEL BUILDER DISPLAY us Santos Berry MD LAB - BLOOD ORDERABLES Final Res ult LABORATORY [facility] [address] Lab (1st floor, no room number) [place] [address] * (ABNORMAL) Ketone Beta-Hydroxybutyrate Quantitative (04/28/2024 3:32 PM MODEL BUILDER DISPLAY) Ketone (Beta-Hydroxybuty rate) Quantitative 0.31(H) <=0.30 mmol/L 04/28/2024 4:06 PM MODEL BUILDER DISPLAY [facility] Blood BLOOD SPECIMEN / Unknown Venipuncture / Unknown 04/28/2024 3:32 PM MODEL BUILDER DISPLAY 04/28/2024 3:42 PM MODEL BUILDER DISPLAY us Santos Berry MD LAB - BLOOD ORDERABLES Final Res ult [facility] LABORATORY [facility] [address] Lab (1st floor, no room number) [place] [id number] * (ABNORMAL) Blood gas venous (04/28/2024 3:32 PM MODEL BUILDER DISPLAY) pH Venous 7.43 7.32 - 7.43 04/28/2024 4:02 PM MODEL BUILDER DISPLAY [facility] pCO2 Venous 41 40 - 50 mm Hg 04/28/2024 4:02 PM MODEL BUILDER DISPLAY [facility] pO2 Venous 44 25 - 47 mm Hg 04/28/2024 4:02 PM MODEL BUILDER DISPLAY [facility] Bicarbonate Venous 27 21 - 28 mmol/L 04/28/2024 4:02 PM MODEL BUILDER DISPLAY [facility] Base Excess/Deficit Venous 2.1 -3.0 - 3.0 mmol/L 04/28/2024 4:02 PM MODEL BUILDER DISPLAY [facility] FIO2 0 CHADD 04/28/2024 4:02 PM MODEL BUILDER DISPLAY [facility] Comment:room air Oxyhemoglobin Venous 76(H) 70 - 75 % 04/28/2024 4:02 PM MODEL BUILDER DISPLAY [facility] O2 Sat, Venous 77.3(H) 70.0 - 75.0 % 04/28/2024 4:02 PM MODEL BUILDER DISPLAY [facility] Blood, venous BLOOD SPECIMEN / Unknown Venipuncture / Unknown 04/28/2024 3:32 PM MODEL BUILDER DISPLAY 04/28/2024 3:42 PM MODEL BUILDER DISPLAY Narrative [facility] - 04/28/2024 4:02 PM MODEL BUILDER DISPLAY In healthy individuals, oxyhemoglobin (O2Hb) and oxygen saturation (SO2) are approximately equal. In the presence of dyshemoglobins, oxyhemoglobin can be considerably lower than oxygen saturation. us Santos Berry MD LAB - BLOOD ORDERABLES Final Res ult [facility] LABORATORY [facility] [address] [facility] Lab (1st floor, no room number) [place] [address], [facility] * (ABNORMAL) Basic metabolic panel (04/28/2024 3:32 PM MODEL BUILDER DISPLAY) [facility] Sodium 137 135 - 145 mmol/L 04/28/2024 4:06 PM [facility] Potassium 4.3 3.4 - 5.3 mmol/L 04/28/2024 4:06 PM [facility] Chloride 95(L) 98 - 107 mmol/L 04/28/2024 4:06 PM [facility] Carbon Dioxide (CO2) 22 22 - 29 mmol/L 04/28/2024 4:06 PM [facility] Anion Gap 20(H) 7 - 15 mmol/L 04/28/2024 4:06 PM [facility] Urea Nitrogen 17.0 6.0 - 20.0 mg/dL 04/28/2024 4:06 PM [facility] Creatinine 0.85 0.67 - 1.17 mg/dL 04/28/2024 4:06 PM [facility] GFR Estimate >90 >60 mL/min/1.7 3m2 04/28/2024 4:06 PM [facility] Comment:eGFR calculated usin g 2020 CKD-EPI equation. Calcium 8.9 8.8 - 10.4 mg/dL 04/28/2024 4:06 PM [facility] Comment:Reference intervals for this test were updated on 11/03/2023 to reflect our healthy population more accurately. There may be differences in the flagging of prior results with similar values performed with this method. Those prior results can be interpreted in the context of the updated reference intervals. Glucose 381(H) 70 - 99 mg/dL 04/28/2024 4:06 PM [facility] Blood BLOOD SPECIMEN / Unknown Venipuncture / Unknown 04/28/2024 3:32 PM MODEL BUILDER DISPLAY 04/28/2024 3:42 PM MODEL BUILDER DISPLAY Santos Berry MD LAB - BLOOD ORDERABLES Final Res ult LABORATORY [facility] [address] [facility], no room number) [place] [address] * (ABNORMAL) Glucose by meter (04/28/2024 3:26 PM MODEL BUILDER DISPLAY) GLUCOSE BY METER POCT 414(H) 70 - 99 mg/dL 04/28/2024 3:33 PM MODEL BUILDER DISPLAY LABORATORY POC Blood, Capillary BLOOD SPECIMEN / Unknown 04/28/2024 3:26 PM MODEL BUILDER DISPLAY 04/28/2024 3:33 PM MODEL BUILDER DISPLAY us Santos Berry MD LAB - BEAKER POCT Final Result Performing Organization Address City/[facility]/ZIP Co de Phone Number LABORATORY [facility] [address] [facility] Lab (1st floor, no room number) [place] [address] * (ABNORMAL) Hemoglobin A1c (01/05/2024 7:36 PM CDT) Hemoglobin A1C 10.3(H) <5.7 % 01/05/2024 8:55 PM CDT LABORATORY Comment: Normal <5.7% Prediabetes 5.7-6.4% Diabetes 6.5% or higher Note: Adopted from ADA consensus guidelines. Blood BLOOD SPECIMEN / Unknown Venipuncture / Unknown 01/05/2024 7:36 PM CDT 01/05/2024 7:43 PM CDT Mike Pineda MD LAB - BLOOD ORDERABLES Fi nal Result LABORATORY [facility] [address] 1st floor, [address] [place] [address], [facility] [phone] * MICROALBUMIN QUANTITATIVE RANDOM URINE - (Today) (03/27/2016 9:52 AM MODEL BUILDER DISPLAY) Creatinine Urine 76 mg/dL [facility] Albumin Urine mg/L <5 mg/L [facility] Albumin Urine mg/g Cr Unable to calculate due to low value 0 - 17 mg/g Cr [facility] Urine specimen (specimen) 03/27/2016 9:52 AM MODEL BUILDER DISPLAY 03/27/2016 9:57 AM MODEL BUILDER DISPLAY us Rebekah Smith APRN, CNP LAB - URINE ORDERA BLES Final Result [facility] [address] [place] [address] [phone] * (ABNORMAL) LIPID PANEL (03/25/2016 10:01 AM MODEL BUILDER DISPLAY) Cholesterol 131 <200 mg/dL [facility] Triglycerides 73 <150 mg/dL [facility] HDL Cholesterol 34(L) >39 mg/dL [facility] LDL Cholesterol Calculated 82 <100 mg/dL [facility] Comment:Desirable: <100 mg/d l Non HDL Cholesterol 97 <130 mg/dL [facility] Blood specimen (specimen) 03/25/2016 10:01 AM MODEL BUILDER DISPLAY 03/25/2016 10:06 AM MODEL BUILDER DISPLAY us Tex Lee MD LAB - BLOOD ORDERABLES Final Res ult [facility] [address] [place] [address] from Last 3 Months or Most Recently Relevant to Health Maintenance Insurance [facility] * Guarantor: Joao Linares Account Type Relation to Patient Date of Phone Billing Address Medication Therapy Self 1985 [address] [place] [address] Advance Directives For more information, please contact: [phone] * Full Code (Latest Code Status on File) Date Activated Date Inactivated Comments 01/06/2024 4:57 PM 01/07/2024 4:28 PM All basic an d advanced life-sustaining interventions are performed as appropriate Question Answer Comments Code status determined by: Discussion with kwadwo rodriguez/ legal decision maker * Full Code Date Activated Date Inactivated Comments 11/19/2023 9:42 PM 11/21/2023 12:58 PM All basic and advanced life-sustaining interventions are performed as appropriate Question Answer Comments Code status determined by: Discussion with patie nt/ legal decision maker * Full Code Date Activated Date Inactivated Comments 12/21/2020 5:28 PM 12/23/2020 5:21 PM All basic and advanced life-sustaining interventions are performed as appropriate Question Answer Comments Code status determined by: Discussion with patie nt/ legal decision maker * Full Code Date Activated Date Inactivated Comments 05/03/2019 1:25 PM 12/21/2020 10:02 AM Question Answer Comments Code status determined by: Discussion with patie nt/legal decision maker * Full Code Date Activated Date Inactivated Comments 05/02/2019 4:02 PM 05/03/2019 1:25 PM Question Answer Comments Code status determined by: Discussion with patie nt/legal decision maker Care Teams Museum Librarian Relationship Specialty Start Date End Date No Ref-Primary, Physician PCP - General 02/24/23 [place] [address] [place], [place] [address] Internal Medicine 03/27/16 Alicia Corbett MD [address] [place] [address] [id number] Ophthalmology 03/27/16 Guillermina Victoria, RN [address] [place] [address] [id number] Diabetes Education 03/27/[address] [place] [address] [phone] Registered Dietitian Nutrition 03/27/16 Rowan Barry MD [address] [place] [address] [place] [address] INTERNAL MEDICINE - ENDOCRINOLOGY, DIABETES & METABOLISM 03/27/16 Guillermina Victoria, RN [address] [place] [address] Printed Circuit Boards Solder Leveler Diabetes Education 12/26/20 Meliza Buchanan, PA-C [address] [place] [address] Physician Broadcast News Producer Dermatology 04/29/23 Александр Scott MD [facility] [address] [facility] [address] [place] [address] Referring Physician Emergency Medicine 04/29/23 Harmony Maldonado MD [address] [place] [address] Hospitalist Internal Medicine 11/23/23
--- OUTSIDE RECORDS SUMMARY | 2024-05-18 16:36 | XMS_ITS | Encounter Summary ---
Author Organization [facility] Address [address] [place] [address]. [place] [address] Care Team Providers Care Licensed Tax Consultant Name Role Phone Orin Monk MD Unavailable Alicia Corbett MD Unavailable [phone] Guillermina Victoria RN Unavailable [phone] Unavailable [phone] Rowan Barry MD Unavailable Guillermina Victoria RN Unavailable [phone] No Ref-Primary, Physician Primary Care Provider Meliza Buchanan PA-C Unavailable [phone] Александр Scott MD Unavailable [phone] Harmony Maldonado MD Unavailable [phone] Encounter Details Date Type Department Care Team (Late st Contact Info) Description 05/06/2024 [facility] [facility] [address] [place] [address] Aleksandra Infante CMA Social History Tobacco Use Types Packs/Day Years [...] on file 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 Gender Identity Not on file Sexual Orientation Not on file documented as of this encounter Plan of Treatment Not on file documented as of this encounter Visit Diagnoses Not on filedocumented in this encounter Care Teams Licensed Tax Consultant Relationship Specialty Start Date End Date No Ref-Primary, Physician PCP - General 02/24/23 [place] [address] [place], [place] [address] Internal Medicine 03/27/16 Alicia Corbett MD [address] [place] [address] [id number] MD Ophthalmology 03/27/16 Guillermina Victoria, RN [address] [place], [place] [id number] Diabetes Education 03/27/[address] [place], [place] [id number] Registered Dietitian Nutrition 03/27/16 Rowan Barry MD [address] [place] [address] [id number] INTERNAL MEDICINE - ENDOCRINOLOGY, DIABETES & METABOLISM 03/27/16 Guillermina Victoria, RN [address] [place], [place] [id number] Joint Maker Machine Diabetes Education 12/26/20 Meliza Buchanan, PA-C [address] [place] [address] [place] [address] Physician Inseam Trimmer Dermatology 04/29/23 Александр Scott MD [facility] [address] [facility] [address] [address] [address] [place] [address] Referring Physician Emergency Medicine 04/29/23 Harmony Maldonado MD [address] [address] Hospitalist Internal Medicine 11/23/23 documented as of this encounter
--- OUTSIDE RECORDS SUMMARY | 2024-05-18 16:36 | XMS_ITS | Encounter Summary ---
Author Organization [facility] Address [address] [place] [address] Care Team Providers Care Nuclear Powerplant Mechanic Helper Name Role Phone Basil Epps MD Primary Care Provider Unavaila Orin Vásquez MD Unavailable Alicia Corbett MD Unavailable [phone] Guillermina Victoria RN Unavailable [phone] Unavailable [phone] Rowan Barry MD Unavailable Tex Lee MD Unavailable Tex Lee MD Unavailable Guillermina Victoria RN Unavailable Rowan Barry MD Unavailable No Ref-Primary, Physician Primary Care Provider Meliza Buchanan PA-C Unavailable [phone] Александр Scott MD Unavailable Harmony Maldonado MD Unavailable Reason for Visit * Reason Comments Medication Refill novolog Encounter Details Date Type Department Care Team (Late st Contact Info) Description 08/14/2016 Refill M [address] [place] [address] Tex Lee MD [address] [place] [address] Medication Refill (novolog) Social History Tobacco Use Types Packs/Day Years Used Date Smoking Tobacco: Former Cigarettes 0.3 15 1 05/28/1998 - 03/27/2014 Smokeless Tobacco: Current Comments:using nicotine gum Alcohol Use Standard Drinks/Week Comments Yes 0 (1 standard drink = 0.6 oz pur e alcohol) couple beers infrequently Sex and Gender Information Value Date Recorded Sex Assigned at Not on file 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 [address] Lee, insulin should route to Endo for review as patient hasbeen f/u with Endo for DM Routing to Dr. Barry for review Ev Smith RN * Telephone Encounter - Yuko Cardenas CMA - 08/14/2016 6:41 PM CDT Novolog Last Written Prescription Date: 04/25/16 Last Fill Quantity: 45ml, # refills: 3 Last Office Visit with G, P or [facility] prescribing provider: 03/25/16 BP Readings from Last 3 Encounters: 06/25/16 130/79 05/21/16 135/74 04/23/16 120/76 Lab Results Component Value Date MICROL <5 03/27/2016 Lab Results Component Value Date UMALCR Unable to calculate due to low value 03/27/2016 Creatinine Date Value Ref Range Status 03/25/2016 0.77 0.66 - 1.25 mg/dL Final ] GFR Estimate Date Value Ref Range Status 03/25/2016 >90 Non GFR Calc >60 mL/min/1.7m2 Final 01/10/2007 >90 >60 mL/min/1.7m2 Final 01/07/2007 >90 >60 mL/min/1.7m2 Final GFR Estimate If Black Date Value Ref Range Status 03/25/2016 >90 GFR Calc >60 mL/min/1.7m2 Final 01/10/2007 >90 >60 mL/min/1.7m2 Final 01/07/2007 >90 >60 mL/min/1.7m2 Final Lab Results Component Value Date CHOL 131 03/25/2016 Lab Results Component Value Date HDL 34 03/25/2016 Lab Results Component Value Date LDL 82 03/25/2016 Lab Results Component Value Date TRIG 73 03/25/2016 Lab Results Component Value Date CHOLHDLRATIO 3.0 05/14/2005 Lab Results Component Value Date AST 11 03/25/2016 Lab Results Component Value Date ALT 18 03/25/2016 Lab Results Component Value Date A1C 5.3 06/12/2016 A1C 8.3 03/25/2016 A1C 14.6 01/05/2007 A1C 12.1 05/14/2005 A1C 11.4 12/30/2004 Potassium Date Value Ref Range Status 03/25/2016 4.2 3.4 - 5.3 mmol/L Final Yuko Cardenas CMA documented in this encounter Plan of Treatment Not on file documented as of this encounter Visit Diagnoses Diagnosis Type 1 diabetes mellitus without complication (H)- Primary Type I (juvenile type) diabetes mellitus without mention of complication, not stated as uncontrolled documented in this encounter Additional Health Concerns Infection Onset Date Last Indicated Resolved Time Rule Out COVID-19 01/05/2024 01/05/2024 01/05/2024 9:04 PM CDT documented as of this encounter Care Teams Nuclear Powerplant Mechanic Helper Relationship Specialty Start Date End Date Basil Epps MD PCP - General 12/29/04 02/10/23 Tex Lee MD [address] [place] [address] [place] [address] PCP - Assigned PCP 02/29/16 06/22/18 No Ref-Primary, Physician PCP - General 02/24/23 [place] [address] [place] [address] Internal Medicine 03/27/16 Alicia Corbett MD [address] [place], [place] [phone] MD Ophthalmology 03/27/16 Guillermina Victoria RN [address] [place] [address] [id number] Diabetes Education 03/27/[address] [place] [address] [phone] Registered Dietitian Nutrition 03/27/16 Rowan Barry MD [address] [place] [address] [id number] MD INTERNAL MEDICINE - ENDOCRINOLOGY, DIABETES & METABOLISM 03/27/16 Tex Lee MD [address] [place] [address] [place] [address] Assigned PCP 02/29/16 03/26/19 Guillermina Victoria, RN [address] [place] [address] [phone] Semiconductor Manufacturing Technician Diabetes Education 12/26/20 Rowan Barry MD [address] [place] [address] [id number] Assigned Endocrinology Provider 01/06/21 06/27/22 Meliza Buchanan PA-C [address] [place] [address] Physician Fiberglass Quality Technician Dermatology 04/29/23 Александр Scott MD [facility] [address] [place], [place] [address] Referring Physician Emergency Medicine 04/29/23 Harmony Maldonado MD [address] [place] [id number] Hospitalist Internal Medicine 11/23/23 documented as of this encounter
--- OUTSIDE RECORDS SUMMARY | 2024-05-18 16:36 | XMS_ITS | Clinical Summary ---
Author Organization [place] Address [address] [place] [address] Care Team Providers Care Manager Dairy Name Role Phone Orin Monk MD Unavailable Alicia Corbett MD Unavailable [phone] Guillermina Victoria RN Unavailable [phone] Unavailable [phone] Rowan Barry MD Unavailable Guillermina Victoria RN Unavailable No Ref-Primary, Physician Primary Care Provider Meliza Buchanan PA-C Unavailable [phone] Александр Scott MD Unavailable Harmony Maldonado MD Unavailable [phone] Allergies No known active allergies Medications blood [...] updated by automated process. Provider to review Encounters Date Type Department Care Team Description 05/16/2024 Telephone [facility] [address] [address] Rowan Barry MD Glucose (Glucose data for 05/18 appt ) 05/06/2024 MyC Medical Advice [facility] [address] [phone] Aleksandra Infante CMA 04/28/2024 3:22 PM SMALL BUSINESS CONSULTANT - 04/28/2024 10:51 PM SMALL BUSINESS CONSULTANT Emergency [facility] Emergency Dept [address] [place] [address] Santos Berry MD Goodman, Brian Samuel, MD Hyperglycemia; Nausea and vomiting, unspecified vomiting type; Hypertension, unspecified type; Encounter for medication refill Discharge Disposition: Home or Self Care 04/28/2024 Travel from Last 3 Months Immunizations Name Administration Dates Next Due HEPA 08/06/2015 Influenza (IIV3) PF 03/27/2016 Meningococcal ACWY (Menveo ) 08/06/2015 Pneumococcal 23 valent 03/27/2016 TD,PF 7+ (Tenivac) 04/20/2003 TDAP Vaccine (Adacel) 08/06/2015 Typhoid IM 08/06/2015 Yellow Fever 08/06/2015 Family History Medical History Relation Comments Hypertension Mother Asthma No family hx of Cerebrovascular Disease No family hx of Colon Cancer No family hx of Coronary Artery Disease No family hx of Diabetes No family hx of Hyperlipidemia No family hx of Prostate Cancer No family hx of Relation Status Comments Mother Social History Tobacco Use Types Packs/Day Years [...] on file Legal Sex Male 4:39 AM SMALL BUSINESS CONSULTANT Gender Identity Not on file Sexual Orientation Not on file Last Filed Vital Signs Vital Sign Reading Time Taken Comments Blood Pressure 191/109 04/28/2024 10:49 PM SMALL BUSINESS CONSULTANT Pulse 105 04/28/2024 10:00 PM SMALL BUSINESS CONSULTANT Temperature 36.9 C (98.5 F) 04/28/2024 3:21 PM SMALL BUSINESS CONSULTANT Respiratory Rate 18 04/28/2024 5:31 PM SMALL BUSINESS CONSULTANT Oxygen Saturation 98% 04/28/2024 10: 00 PM SMALL BUSINESS CONSULTANT Inhaled Oxygen Concentration - - Weight 103.7 kg (228 lb 9.9 oz) 04/28/2024 3:18 PM SMALL BUSINESS CONSULTANT Height 182.9 cm (6') 04/28/2024 3:18 PM SMALL BUSINESS CONSULTANT Body Mass Index 31.01 04/28/2024 3:18 PM SMALL BUSINESS CONSULTANT Plan of Treatment Health Maintenance Due Date Last Done Comments ADVANCE CARE PLANNING 1983 ANNUAL REVIEW OF HM ORDERS 1983 EYE EXAM 1983 YEARLY PREVENTIVE VISIT 1986 HIV SCREENING 1998 HEPATITIS C SCREENING 2001 HEPATITIS B IMMUNIZATION (1 of 3 - 19+ 3-dose series) 2002 LIPID 03/25/2017 03/25/2016, 05/14/2005 DIABETIC FOOT EXAM 03/27/2017 03/27/2016, 03/27/2016 MICROALBUMIN 03/27/2017 03/27/2016, 05/23/2005 Pneumococcal Vaccine: Pediatrics (0 to 5 Years) and At-Risk Patients (6 to 49 Years) (2 of 2 - PCV) 03/27/2017 03/27/2016 COVID-19 Vaccine ( - season) 2023 11/04/2020, 10/03/2020 INFLUENZA VACCINE (#1) 2023 03/27/2016, 2015 PHQ-2 (once per calendar year) 2024 03/27/2016, 03/25/2016 A1C 07/04/2024 01/05/2024, 08/0 04/2023, 12/21/2020, Additional history exists BMP 04/28/2025 04/28/2024, 12/19, 01/06/2024, Additional history exists DTAP/TDAP/TD IMMUNIZATION (4 - Td or Tdap) 08/05/2025 08/06/2015, 02/20/2013, 04/20/2003 ZOSTER IMMUNIZATION (1 of 2) 2033 RSV VACCINE (1 - 1-dose 75+ series) 2058 MENINGITIS IMMUNIZATION Aged Out 08/06/2015 No l onger eligible based on patient's age to complete this topic HPV IMMUNIZATION Aged Out No longer e ligible based on patient's age to complete this topic RSV MONOCLONAL ANTIBODY Aged Out No l onger eligible based on patient's age to complete this topic Procedures Procedure Name Priority Date/Time Associated Diagnosis Comments LACTIC ACID WHOLE BLOOD STAT 04/28/2024 9:02 PM SMALL BUSINESS CONSULTANT ISTAT GASES LACTATE VENOUS POCT STAT 04/28/2024 6:35 PM SMALL BUSINESS CONSULTANT ISTAT BASIC CHEM ICA HEMATOCRIT POCT STAT 04/28/2024 6:35 PM SMALL BUSINESS CONSULTANT EKG 12-LEAD, TRACING ONLY STAT 04/28/2024 3:34 PM SMALL BUSINESS CONSULTANT CBC WITH PLATELETS & DIFFERENTIAL STAT 04/28/2024 3:32 PM SMALL BUSINESS CONSULTANT TROPONIN T, HIGH SENSITIVITY STAT 04/28/2024 3:32 PM SMALL BUSINESS CONSULTANT EXTRA RED TOP TUBE STAT 04/28/2024 3: 32 PM SMALL BUSINESS CONSULTANT EXTRA BLUE TOP TUBE STAT 04/28/2024 3 :32 PM SMALL BUSINESS CONSULTANT CBC WITH PLATELETS AND DIFFERENTIAL STAT 04/28/2024 3:32 PM SMALL BUSINESS CONSULTANT EXTRA TUBE STAT 04/28/2024 3:32 PM SMALL BUSINESS CONSULTANT BLOOD GAS VENOUS STAT 04/28/2024 3:32 PM SMALL BUSINESS CONSULTANT KETONE BETA-HYDROXYBUTYRATE QUANTITATIVE, RAPID STAT 04/28/2024 3:32 PM SMALL BUSINESS CONSULTANT BASIC METABOLIC PANEL STAT 04/28/2024 3:32 PM SMALL BUSINESS CONSULTANT GLUCOSE BY METER STAT 04/28/2024 3:26 PM SMALL BUSINESS CONSULTANT HEMOGLOBIN A1C STAT 01/05/2024 7:36 PM CDT ALBUMIN RANDOM URINE QUANTITATIVE Routine 03/27/2016 9:52 AM SMALL BUSINESS CONSULTANT Screening for diabetic peripheral neuropathy Need for prophylactic vaccination against Streptococcus pneumoniae (pneumococcus) LIPID PROFILE Routine 03/25/2016 10:01 AM SMALL BUSINESS CONSULTANT Type 1 diabetes mellitus without complication (H) from Last 3 Months or Most Recently Relevant to Health Maintenance Results * Lactic acid whole blood (04/28/2024 9:02 PM SMALL BUSINESS CONSULTANT) Lactic Acid 1.5 0.7 - 2.0 mmol/L 04/28/2024 9:10 PM SMALL BUSINESS CONSULTANT [facility] Blood BLOOD SPECIMEN / Unknown Venipuncture / Unknown 04/28/2024 9:02 PM SMALL BUSINESS CONSULTANT 04/28/2024 9:06 PM SMALL BUSINESS CONSULTANT Santos Berry MD LAB - BLOOD ORDERABLES Final Res ult [facility] [address] Lab (1st floor, no room number) [place] [address], [facility] * (ABNORMAL) iStat Basic Chem ICA Hematocrit, POCT (04/28/2024 6:35 PM SMALL BUSINESS CONSULTANT) [facility] Chloride POCT 98 94 - 109 mmol/L 04/28/2024 6:42 PM SMALL BUSINESS CONSULTANT [facility] POC Potassium POCT 5.7(H) 3.4 - 5.3 mmol/L 04/28/2024 6:42 PM SMALL BUSINESS CONSULTANT [facility] Sodium POCT 135 135 - 145 mmol/L 04/28/2024 6:42 PM SMALL BUSINESS CONSULTANT [facility] P[facility] UREA NITROGEN POCT 22 7 - 30 mg/dL 04/28/2024 6:42 PM SMALL BUSINESS CONSULTANT [facility] POC Calcium, Ionized Whole Blood POCT 4.3(L) 4.4 - 5.2 mg/dL 04/28/2024 6:42 PM SMALL BUSINESS CONSULTANT [facility] Glucose Whole Blood POCT 122(H) 70 - 99 mg/dL 04/28/2024 6:42 PM SMALL BUSINESS CONSULTANT [facility] Anion Gap POCT 16.0(H) 3.0 - 14.0 mmol/L 04/28/2024 6:42 PM SMALL BUSINESS CONSULTANT [facility] Hemoglobin POCT 15.3 13.3 - 17.7 g/dL 04/28/2024 6:42 PM SMALL BUSINESS CONSULTANT [facility] Hematocrit POCT 45 40 - 53 % 6:42 PM SMALL BUSINESS CONSULTANT [facility] Creatinine POCT 0.8 0.7 - 1.3 mg/dL 04/28/2024 6:42 PM SMALL BUSINESS CONSULTANT [facility] TOTAL CO2 POCT 28 20 - 32 mmol/L 04/28/2024 6:42 PM SMALL BUSINESS CONSULTANT [facility] POC Blood, venous BLOOD SPECIMEN / Unknown 04/28/2024 6:35 PM SMALL BUSINESS CONSULTANT 04/28/2024 6:42 PM SMALL BUSINESS CONSULTANT Santos Berry MD LAB - BEAKER POCT Final Result [facility] POC [facility] [address] [facility], no room number) [place] [address] * (ABNORMAL) iStat Gases (lactate) venous, POCT (04/28/2024 6:35 PM SMALL BUSINESS CONSULTANT) Lactic Acid POCT 4.6(HH) <=2.0 mmol/L 04/28/2024 6:59 PM SMALL BUSINESS CONSULTANT [facility] POC Comment:--- Bicarbonate Venous POCT 31(H) 21 - 28 mmol/L 04/28/2024 6:59 PM SMALL BUSINESS CONSULTANT [facility] POC Comment:--- O2 Sat, Venous POCT 35(L) 70 - 75 % 04/28/2024 6:59 PM SMALL BUSINESS CONSULTANT [facility] POC Comment:--- pCO2 Venous POCT 52(H) 40 - 50 mm Hg 04/28/2024 6:59 PM SMALL BUSINESS CONSULTANT [facility] POC Comment:--- pH Venous POCT 7.38 7.32 - 7.43 04/28/2024 6:59 PM SMALL BUSINESS CONSULTANT [facility] POC Comment:--- pO2 Venous POCT 22(L) 25 - 47 mm Hg 04/28/2024 6:59 PM SMALL BUSINESS CONSULTANT [facility] POC Comment:--- Blood, venous BLOOD SPECIMEN / Unknown 04/28/2024 6:35 PM SMALL BUSINESS CONSULTANT 04/28/2024 6:59 PM SMALL BUSINESS CONSULTANT us Santos Berry MD LAB - BEAKER POCT Final Result Performing Organization Address City/State/[facility] Co de Phone Number [facility] POC [facility] [address] [facility] Lab (1st floor, no room number) [place] [address] * EKG 12 lead (04/28/2024 3:34 PM SMALL BUSINESS CONSULTANT) Systolic Blood Pressure mmHg RADIOLOGY RESULTS Diastolic Blood Pressure mmHg RADIOLOGY RESULTS Ventricular Rate 115 BPM RAD IOLOGY RESULTS Atrial Rate 115 BPM RADIOLOG Y RESULTS SC Interval 150 ms RADIOLOG Y RESULTS QRS Duration 84 ms RADIOLO GY RESULTS QT 312 ms RADIOLOGY RESULTS QTc 431 ms RADIOLOGY RESULTS P [place] 43 degrees RADIOLOGY RESULTS R AXIS -14 degrees RADIOLOGY RESULTS T [place] 40 degrees RADIOLOGY RESULTS Interpretation ECG Sinus tachycardia Otherwise normal ECG When compared with ECG of 06-Jan-2024 01:01, No significant change was found Unconfirmed report - interpretation of this ECG is computer generated - see medical record for final interpretation Confirmed by - EMERGENCY ROOM, PHYSICIAN ([id number]), editorial clerk NATALIA NORWOOD ([id number]) on 04/29/2024 7:52:59 AM RADIOLOGY RESULTS 04/28/2024 3:34 PM SMALL BUSINESS CONSULTANT 04/29/2024 7:52 AM SMALL BUSINESS CONSULTANT us Santos Berry MD ECG ORDERABLES Edited Result - Final RADIOLOGY RESULTS * Extra Red Top Tube (04/28/2024 3:32 PM SMALL BUSINESS CONSULTANT) Hold Specimen [facility] 04/28/2024 4:46 PM SMALL BUSINESS CONSULTANT [facility] Blood BLOOD SPECIMEN / Unknown Venipuncture / Unknown 04/28/2024 3:32 PM SMALL BUSINESS CONSULTANT 04/28/2024 3:42 PM SMALL BUSINESS CONSULTANT us Santos Berry MD LAB - BLOOD ORDERABLES Final Res ult Performing Organization Address [facility]/ZIP Co de Phone Number [facility] Lab [address] Lab (1st floor, no room number) [address] * Extra Blue Top Tube (04/28/2024 3:32 PM SMALL BUSINESS CONSULTANT) Hold Specimen [facility] 04/28/2024 4:46 PM SMALL BUSINESS CONSULTANT [facility] Blood BLOOD SPECIMEN / Unknown Venipuncture / Unknown 04/28/2024 3:32 PM SMALL BUSINESS CONSULTANT 04/28/2024 3:42 PM SMALL BUSINESS CONSULTANT us Santos Berry MD LAB - BLOOD ORDERABLES Final Res ult [facility] Lab [address] Lab (1st floor, no room number) [address] * CBC with platelets and differential (04/28/2024 3:32 PM SMALL BUSINESS CONSULTANT) [facility] WBC Count 8.0 4.0 - 11.0 10e3/uL 04/28/2024 3:45 PM SMALL BUSINESS CONSULTANT [facility] RBC Count 4.92 4.40 - 5.90 10e6/uL 04/28/2024 3:45 PM SMALL BUSINESS CONSULTANT [facility] Hemoglobin 15.6 13.3 - 17.7 g/dL 04/28/2024 3:45 PM SMALL BUSINESS CONSULTANT [facility] Hematocrit 44.5 40.0 - 53.0 % 04/28/2024 3:45 PM SMALL BUSINESS CONSULTANT [facility] MCV 90 78 - 100 fL 04/28/2024 3:45 PM SMALL BUSINESS CONSULTANT [facility] MCH 31.7 26.5 - 33.0 pg 04/28/2024 3:45 PM SMALL BUSINESS CONSULTANT [facility] MCHC 35.1 31.5 - 36.5 g/dL 04/28/2024 3:45 PM SMALL BUSINESS CONSULTANT [facility] RDW 14.6 10.0 - 15.0 % 04/28/2024 3:45 PM SMALL BUSINESS CONSULTANT [facility] Platelet Count 364 150 - 450 10e3/uL 04/28/2024 3:45 PM SMALL BUSINESS CONSULTANT [facility] % Neutrophils 81 % 04/28/2024 3:45 PM SMALL BUSINESS CONSULTANT [facility] % Lymphocytes 12 % 04/28/2024 3:45 PM SMALL BUSINESS CONSULTANT [facility] % Monocytes 6 % 04/28/2024 3:45 PM SMALL BUSINESS CONSULTANT [facility] % Eosinophils 0 % 04/28/2024 3:45 PM SMALL BUSINESS CONSULTANT [facility] % Basophils 1 % 04/28/2024 3:45 PM SMALL BUSINESS CONSULTANT [facility] % Immature Granulocytes 0 % 04/28/2024 3:45 PM SMALL BUSINESS CONSULTANT [facility] NRBCs per 100 WBC 0 <1 /100 025 3:45 PM SMALL BUSINESS CONSULTANT [facility] Absolute Neutrophils 6.4 1.6 - 8.3 10e3/uL 04/28/2024 3:45 PM SMALL BUSINESS CONSULTANT [facility] Absolute Lymphocytes 0.9 0.8 - 5.3 10e3/uL 04/28/2024 3:45 PM SMALL BUSINESS CONSULTANT [facility] Absolute Monocytes 0.5 0.0 - 1.3 10e3/uL 04/28/2024 3:45 PM SMALL BUSINESS CONSULTANT [facility] Absolute Eosinophils 0.0 0.0 - 0.7 10e3/uL 04/28/2024 3:45 PM SMALL BUSINESS CONSULTANT [facility] Absolute Basophils 0.1 0.0 - 0.2 10e3/uL 04/28/2024 3:45 PM SMALL BUSINESS CONSULTANT [facility] Absolute Immature Granulocytes 0.0 <=0.4 10e3/uL 04/28/2024 3:45 PM SMALL BUSINESS CONSULTANT [facility] Absolute NRBCs 0.0 10e3/uL 04/28/2024 3:45 PM SMALL BUSINESS CONSULTANT LABORATORY Blood BLOOD SPECIMEN / Unknown Venipuncture / Unknown 04/28/2024 3:32 PM SMALL BUSINESS CONSULTANT 04/28/2024 3:42 PM SMALL BUSINESS CONSULTANT us Santos Berry MD LAB - BLOOD ORDERABLES Final Res ult LABORATORY [facility] [address] Lab (1st floor, no room number) [place] [address] * Troponin T, High Sensitivity (04/28/2024 3:32 PM SMALL BUSINESS CONSULTANT) [facility] Troponin T, High Sensitivity 10 <=22 ng/L 04/28/2024 4:06 PM SMALL BUSINESS CONSULTANT LABORATORY Comment: Either a High Sensitivity Troponin [...] Unknown Venipuncture / Unknown 04/28/2024 3:32 PM SMALL BUSINESS CONSULTANT 04/28/2024 3:42 PM SMALL BUSINESS CONSULTANT us Santos Berry MD LAB - BLOOD ORDERABLES Final Res ult LABORATORY [facility] [address] Lab (1st floor, no room number) [place] [address] * (ABNORMAL) Ketone Beta-Hydroxybutyrate Quantitative (04/28/2024 3:32 PM SMALL BUSINESS CONSULTANT) Ketone (Beta-Hydroxybuty rate) Quantitative 0.31(H) <=0.30 mmol/L 04/28/2024 4:06 PM SMALL BUSINESS CONSULTANT [facility] Blood BLOOD SPECIMEN / Unknown Venipuncture / Unknown 04/28/2024 3:32 PM SMALL BUSINESS CONSULTANT 04/28/2024 3:42 PM SMALL BUSINESS CONSULTANT us Santos Berry MD LAB - BLOOD ORDERABLES Final Res ult [facility] [address] [facility] Lab (1st floor, no room number) [place] [address] * (ABNORMAL) Blood gas venous (04/28/2024 3:32 PM SMALL BUSINESS CONSULTANT) Pathologist [facility] pH Venous 7.43 7.32 - 7.43 04/28/2024 4:02 PM SMALL BUSINESS CONSULTANT [facility] pCO2 Venous 41 40 - 50 mm Hg 04/28/2024 4:02 PM SMALL BUSINESS CONSULTANT [facility] pO2 Venous 44 25 - 47 mm Hg 04/28/2024 4:02 PM SMALL BUSINESS CONSULTANT [facility] Bicarbonate Venous 27 21 - 28 mmol/L 04/28/2024 4:02 PM SMALL BUSINESS CONSULTANT [facility] Base Excess/Deficit Venous 2.1 -3.0 - 3.0 mmol/L 04/28/2024 4:02 PM SMALL BUSINESS CONSULTANT [facility] FIO2 0 CHADD 04/28/2024 4:02 PM SMALL BUSINESS CONSULTANT [facility] Comment:room air Oxyhemoglobin Venous 76(H) 70 - 75 % 04/28/2024 4:02 PM SMALL BUSINESS CONSULTANT [facility] O2 Sat, Venous 77.3(H) 70.0 - 75.0 % 04/28/2024 4:02 PM SMALL BUSINESS CONSULTANT [facility] Blood, venous BLOOD SPECIMEN / Unknown Venipuncture / Unknown 04/28/2024 3:32 PM SMALL BUSINESS CONSULTANT 04/28/2024 3:42 PM SMALL BUSINESS CONSULTANT Narrative [facility] - 04/28/2024 4:02 PM SMALL BUSINESS CONSULTANT In healthy individuals, oxyhemoglobin (O2Hb) and oxygen saturation (SO2) are approximately equal. In the presence of dyshemoglobins, oxyhemoglobin can be considerably lower than oxygen saturation. us Santos Berry MD LAB - BLOOD ORDERABLES Final Res ult LABORATORY [facility] [address] [facility] Lab (1st floor, no room number) [place] [address], [facility] * (ABNORMAL) Basic metabolic panel (04/28/2024 3:32 PM SMALL BUSINESS CONSULTANT) Sodium 137 135 - 145 mmol/L 04/28/2024 4:06 PM [facility] Potassium 4.3 3.4 - 5.3 mmol/L 04/28/2024 4:06 PM [facility] Chloride 95(L) 98 - 107 mmol/L 04/28/2024 4:06 PM [facility] Carbon Dioxide (CO2) 22 22 - 29 mmol/L 04/28/2024 4:06 PM [facility] Anion Gap 20(H) 7 - 15 mmol/L 04/28/2024 4:06 PM [facility] Urea Nitrogen 17.0 6.0 - 20.0 mg/dL 04/28/2024 4:06 PM [facility] Creatinine 0.85 0.67 - 1.17 mg/dL 04/28/2024 4:06 PM [facility] GFR Estimate >90 >60 mL/min/1.7 3m2 04/28/2024 4:06 PM [facility] Comment:eGFR calculated usin g 2020 CKD-EPI equation. Calcium 8.9 8.8 - 10.4 mg/dL 04/28/2024 4:06 PM [facility] Comment:Reference intervals for this test were updated on 11/03/2023 to reflect our healthy population more accurately. There may be differences in the flagging of prior results with similar values performed with this method. Those prior results can be interpreted in the context of the updated reference intervals. Glucose 381(H) 70 - 99 mg/dL 04/28/2024 4:06 PM [facility] Blood BLOOD SPECIMEN / Unknown Venipuncture / Unknown 04/28/2024 3:32 PM SMALL BUSINESS CONSULTANT 04/28/2024 3:42 PM SMALL BUSINESS CONSULTANT Santos Berry MD LAB - BLOOD ORDERABLES Final Res ult LABORATORY [facility] [address] [facility] (1st floor, no room number) [place] [address] * (ABNORMAL) Glucose by meter (04/28/2024 3:26 PM SMALL BUSINESS CONSULTANT) GLUCOSE BY METER POCT 414(H) 70 - 99 mg/dL 04/28/2024 3:33 PM SMALL BUSINESS CONSULTANT LABORATORY POC Blood, Capillary BLOOD SPECIMEN / Unknown 04/28/2024 3:26 PM SMALL BUSINESS CONSULTANT 04/28/2024 3:33 PM SMALL BUSINESS CONSULTANT Santos Berry MD LAB - BEAKER POCT Final Result Performing Organization Address City/[facility]/ZIP Co de Phone Number LABORATORY [facility] Lab [address] [facility] Lab (1st floor, no room number) [place] [address] * (ABNORMAL) Hemoglobin A1c (01/05/2024 7:36 PM CDT) Hemoglobin A1C 10.3(H) <5.7 % 01/05/2024 8:55 PM CDT LABORATORY Comment: Normal <5.7% Prediabetes 5.7-6.4% Diabetes 6.5% or higher Note: Adopted from ADA consensus guidelines. Blood BLOOD SPECIMEN / Unknown Venipuncture / Unknown 01/05/2024 7:36 PM CDT 01/05/2024 7:43 PM CDT Mike Pineda MD LAB - BLOOD ORDERABLES Fi nal Result LABORATORY [facility] Lab [address] 1st floor, [address] [place] [address], [facility] [phone] * MICROALBUMIN QUANTITATIVE RANDOM URINE - (Today) (03/27/2016 9:52 AM SMALL BUSINESS CONSULTANT) Creatinine Urine 76 mg/dL [facility] Albumin Urine mg/L <5 mg/L [facility] Albumin Urine mg/g Cr Unable to calculate due to low value 0 - 17 mg/g Cr [facility] Urine specimen (specimen) 03/27/2016 9:52 AM SMALL BUSINESS CONSULTANT 03/27/2016 9:57 AM SMALL BUSINESS CONSULTANT us Rebekah Smith APRN, CNP LAB - URINE ORDERA BLES Final Result Performing Organization Address City/[facility]/ZIP Co de Phone Number [facility] [address], [place] [address] [phone] * (ABNORMAL) LIPID PANEL (03/25/2016 10:01 AM SMALL BUSINESS CONSULTANT) Cholesterol 131 <200 mg/dL [facility] Triglycerides 73 <150 mg/dL [facility] HDL Cholesterol 34(L) >39 mg/dL [facility] LDL Cholesterol Calculated 82 <100 mg/dL [facility] Comment:Desirable: <100 mg/d l Non HDL Cholesterol 97 <130 mg/dL [facility] Blood specimen (specimen) 03/25/2016 10:01 AM SMALL BUSINESS CONSULTANT 03/25/2016 10:06 AM SMALL BUSINESS CONSULTANT us Tex Lee MD LAB - BLOOD ORDERABLES Final Res ult [facility] [address] [place] [address] from Last 3 Months or Most Recently Relevant to Health Maintenance Insurance [facility] * Guarantor: Joao Linares Account Type Relation to Patient Date of Phone Billing Address Medication Therapy Self 1985 [id number] [place] [address] Advance Directives For more information, please contact: [phone] * Full Code (Latest Code Status on [...] with patie nt/legal decision maker Care Teams Manager Dairy Relationship Specialty Start Date End Date No Ref-Primary, Physician PCP - General 02/24/23 [place] [address] [place], [place] [phone] Internal Medicine 03/27/16 Alicia Corbett MD [address] [place] [id number] Ophthalmology 03/27/16 Guillermina Victoria, RN [address] [place] [address] [phone] Diabetes Education 03/27/[address] [place] [address] [phone] Registered Dietitian Nutrition 03/27/16 Rowan Barry MD [address] [place] [id number] INTERNAL MEDICINE - ENDOCRINOLOGY, DIABETES & METABOLISM 03/27/16 Guillermina Victoria, RN [address] [place] [address] [employer] Diabetes Education 12/26/20 Meliza Buchanan, PA-C [address] [place] [address] [address] [place] [address] Physician Decision Support Manager Dermatology 04/29/23 Александр Scott MD [facility] [address] [facility] [address] [address] [place] [address] Referring Physician Emergency Medicine 04/29/23 Harmony Maldonado MD [address] [place] [address] Hospitalist Internal Medicine 11/23/23
--- OUTSIDE RECORDS SUMMARY | 2024-05-18 16:37 | XMS_ITS | Encounter Summary ---
Author Organization [facility] Address [address] [place] [id number] Care Team Providers Care Ortho/Prosthetic Aide Name Role Phone Orin Monk MD Unavailable Alicia Corbett MD Unavailable Guillermina Victoria RN Unavailable [phone] Unavailable [phone] Rowan Barry MD Unavailable Guillermina Victoria RN Unavailable [phone] No Ref-Primary, Physician Primary Care Provider Meliza Buchanan PA-C Unavailable Александр Scott MD Unavailable Harmony Maldonado MD Unavailable [phone] Reason for Visit * Reason Comments Hypertension Hyperglycemia Encounter Details Date Type Department Care Team (Late st Contact Info) Description 04/28/2024 3:22 PM SHAKER OPERATOR - 04/28/2024 10:51 PM [facility] Emergency Dept [address] [place] [address] Santos Berry MD [facility] [address], [place] [address] [place] [id number] Taye Schroeder MD [facility] [address] [place] [address] Hyperglycemia; Nausea and vomiting, unspecified vomiting type; Hypertension, unspecified type; Encounter for medication refill Discharge Disposition: Home or Self Care Social History Tobacco Use Types Packs/Day Years [...] on file Legal Sex Male 4:39 AM SHAKER OPERATOR Gender Identity Not on file Sexual Orientation Not on file documented as of this encounter Last Filed Vital Signs Vital Sign Reading Time Taken Comments Blood Pressure 191/109 04/28/2024 10:49 PM SHAKER OPERATOR Pulse 105 04/28/2024 10:00 PM SHAKER OPERATOR Temperature 36.9 C (98.5 F) 04/28/2024 3:21 PM SHAKER OPERATOR Respiratory Rate 18 04/28/2024 5:31 PM SHAKER OPERATOR Oxygen Saturation 98% 04/28/2024 10: 00 PM SHAKER OPERATOR Inhaled Oxygen Concentration - - Weight 103.7 kg (228 lb 9.9 oz) 04/28/2024 3:18 PM SHAKER OPERATOR Height 182.9 cm (6') 04/28/2024 3:18 PM SHAKER OPERATOR Body Mass Index 31.01 04/28/2024 3:18 PM SHAKER OPERATOR documented in this encounter Discharge Instructions * Discharge Instructions* Santos Berry MD - 04/28/2024 6:09 PM SHAKER OPERATOR Return to the emergency department if symptoms are worsening, become concerning, or for any other concerns. Follow-up with your doctor in 2-3 and sooner if needed. Discharge Instructions Hypertension - High Blood Pressure During you visit to the Emergency Department, your blood pressure was higher than the recommended blood pressure. This may be related to stress, pain, medication or other temporary conditions. In these cases, your blood pressure may return to normal on its own. If you have a history of high blood pressure, you may need to have your provider adjust your medications. Sometimes, your high measurement here may indicate that you have developed high blood pressure that will stay high unless it is treated. As a general rule, high blood pressure causes problems over years rather than days, weeks, or months. So, while it is important to treat blood pressure, it is rarely important to treat blood pres sure immediately. Occasionally we will begin a medication in the Emergency Department; more often we will recommend close follow-up for medications with a primary doctor/clinic. Generally, every Emergency Department visit should have a follow-up clinic visit with either a primary or a specialty clinic/provider. Please follow-up as instructed by your emergency provider today. Return to the Emergency Department if you start to have: A severe headache. Chest pain. Shortness of breath. Weakness or numbness that affects one part of the body. Confusion. Vision changes. Significant swelling of legs and/or eyes. A reaction to any medication started in the Emergency Department. What can I do to help myself? Avoid alcohol. Take any blood pressure medicine that you are prescribed. Get a good night???s sleep. Lower your salt intake. Exercise. Lose weight. Manage stress. See your doctor regularly If blood pressure medication was started in the Emergency Department: The medicine may not have an immediate effect. The body and brain determine what blood pressure youhave. The medicine???s job is to retrain the body???s ???thermostat?? to a lower blood pressure. You will need to follow up with your provider to see how this medicine is working for you. If you were given a prescription for medicine here today, be sure to read all of the information (including the package insert) that comes with your prescription. This will include important information about the medicine, its side effects, and any warnings that you need to know about. The pharmacist who fills the prescription can provide more information and answer questions you may have about the medicine. If you have questions or concerns that the pharmacist cannot address, please call or return to the Emergency Department. Remember that you can always come back to the Emergency Department if you are not able to see your regular provider in the amount of time listed above, if you get any new symptoms, or if there is anything that worries you. ER OPERATOR documented in this encounter Medications at Time of Discharge amLODIPine (NORVASC) 10 MG tablet Take 1 tablet (10 mg) by mouth daily. 30 tablet 5 ASPIRIN NOT PRESCRIBED (INTENTIONAL) Antiplatelet medication not prescribed intentionally due to Not indicated based on age blood glucose monitoring (ACCU-CHEK FASTCLIX) lancetsIndication s:Type 1 diabetes mellitus without complication (H) Use to test blood sugar 3 times daily or as directed. Ok to substitute alternative if insurance prefers. 1 Box prn 6 blood glucose monitoring (ACCU-CHEK PEPPER SMARTVIEW) meter device kitIndications:Ty pe 1 diabetes mellitus without complication (H) Use to test blood sugar 3 times daily or as directed. Ok to substitute alternative if insurance prefers. 1 kit 0 6 blood glucose monitoring (ACCU-CHEK SMARTVIEW) test stripIndications: Type 1 diabetes mellitus without complication (H) Use to test blood sugar 3 times daily or as directed. Ok to substitute alternative if insurance prefers. 100 strip prn 6 insulin aspart (NOVOLOG PEN) 100 UNIT/ML pen Inject 1 Units subcutaneously 3 times daily (with meals). 15 mL 5 insulin glargine (LANTUS PEN) 100 UNIT/ML penIndications:Ty pe 1 diabetes mellitus without complication (H) Inject 20 Units subcutaneously every morning. 15 mL 1 4 insulin syringe-needle U-100 (BD INSULIN SYRINGE ULTRAFINE) 30G X 1/2 0.5 ML miscellaneousIndi cations:Type 1 diabetes mellitus without complication (H) Use as directed. 100 each 3 4 losartan-hydrochl orothiazide (HYZAAR) 100-25 MG tablet Take 1 tablet by mouth daily. 30 tablet 5 pantoprazole (PROTONIX) 40 MG EC tabletIndications :Vomiting, unspecified vomiting type, unspecified whether nausea present Take 1 tablet (40 mg) by mouth every morning (before breakfast). 30 tablet 4 STATIN NOT PRESCRIBED, INTENTIONAL, Statin not prescribed intentionally due to age documented as of this encounter ED Notes * Rosalinda Chen RN - 04/28/2024 10:30 PM CST Patient discharged, IV removed, AVS given, Health teaching done, Offered wheelchair patient declines. ER OPERATOR * Taye Schroeder MD - 04/28/2024 9:37 PM CST Patient reassessed at 9 PM. Patient feels much better. He has had 3 L of fluid his lactic acid isimproved to 1. Doubt DKA suspect more alcohol related dehydration due to history of intake of beer and vomiting. Patient is well- appearing. Agrees to take his long-acting insulin and will be discharged to follow-up as an outpatient. Taye Schroeder MD [id number] ER OPERATOR * Marlee Bach RN - 04/28/2024 7:29 PM CST Lawrence cintron applied per pt request ER OPERATOR * Santos Berry MD - 04/28/2024 5:29 PM CST Emergency Department Note History of Present Illness Chief Complaint Hypertension and Hyperglycemia HPI Joao Linares is a 38 year old male with history of type 1 diabetes, hypertension, presents with feeling unwell. Patient drinks 6 beers last night. This morning he woke up and vomited multiple times. No diarrhea. He has no chest pain, shortness of breath, abdominal pain, dysuria. Denies urinary frequency to me. Denies sore throat, runny nose, or cough. Denies sick contact. Patient states he drinks1 time per month and not in excess. Denies using any drugs. Ran out of his blood pressure medications yesterday. Endorses taking his insulin regularly, however did not take today. No rash. When he stands up he feels slightly unsteady and has a moderate headache, which she typically gets when his sugar is high and his sugars were greater than 400 this morning and his systolic blood pressure was greater than 180. Typically they are in the 200s. No motor or sensory changes. Independent Historian None Review of External Notes Ejection fraction echo December 21, 2020, 65 to 70%. Discharge summary January 07, 2024 for DKA. Past Medical History Medical History and Problem List Past Medical History: Diagnosis Date Hypertension, unspecified type 12/21/2020 Left ventricular outflow tract obstruction KAILEY (obstructive sleep apnea) 06/25/2016 Tobacco use disorder Type I (juvenile type) diabetes mellitus without mention of complication, not stated as uncontrolled Medications amLODIPine (NORVASC) 10 MG tablet insulin aspart (NOVOLOG PEN) 100 UNIT/ML pen losartan-hydrochlorothiazide (HYZAAR) 100-25 MG tablet ASPIRIN NOT PRESCRIBED (INTENTIONAL) blood glucose monitoring (ACCU-CHEK FASTCLIX) lancets blood glucose monitoring (ACCU-CHEK PEPPER SMARTVIEW) meter device kit blood glucose monitoring (ACCU-CHEK SMARTVIEW) test strip insulin glargine (LANTUS PEN) 100 UNIT/ML pen insulin syringe-needle U-100 (BD INSULIN SYRINGE ULTRAFINE) 30G X 1/2 0.5 ML miscellaneous pantoprazole (PROTONIX) 40 MG EC tablet STATIN NOT PRESCRIBED, INTENTIONAL, Surgical History Past Surgical History: Procedure Laterality Date NO HISTORY OF SURGERY Physical Exam Patient Vitals for the past 24 hrs: BP Temp Temp src Pulse Resp SpO2 Height Weight 04/28/24 1754 (!) 180/102 -- -- 102 -- 99 % -- -- 04/28/24 1731 (!) 199/107 -- -- 112 18 97 % -- -- 04/28/24 1703 (!) 206/121 -- -- 114 16 99 % -- -- 04/28/24 1617 (!) 191/111 -- -- -- -- -- -- -- 04/28/24 1523 (!) 210/136 -- -- -- -- -- -- -- 04/28/24 1521 -- 98.5 ??F (36.9 ??C) Oral 124 18 98 % -- -- 04/28/24 1518 -- -- -- -- -- -- 1.829 m (6') 103.7 kg (228 lb 9.9 oz) Physical Exam GENERAL: Patient appears anxious, but nontoxic. HEAD: Atraumatic. EYES: Anicteric. PERRL NOSE: No active bleeding MOUTH: Moist mucosa THROAT: Patent airway. NECK: No rigidity CV: Tachycardic and regular, no murmurs, rubs or gallops PULM: CTAB with good aeration; no retractions, rales, rhonchi, or wheezing ABD: Soft, nontender, nondistended, no guarding, no peritoneal signs DERM: No rash. Skin warm and sweaty. EXTREMITY: Moving all extremities without difficulty. No calf tenderness or peripheral edema VASCULAR: Symmetric pulses bilaterally NEURO: A,Ox3. Speaks clearly. CN 2-12 fully intact. Strength 5/5 bilateral LE/UE. Sensation fully intact to light touch symmetrically bilateral LE/UE. Normal gait assessment without ataxia. Diagnostics Lab Results Labs Ordered and Resulted from Time of ED Arrival to Time of ED Departure BASIC METABOLIC PANEL - Abnormal Result Value Sodium 137 Potassium 4.3 Chloride 95 (*) Carbon Dioxide (CO2) 22 Anion Gap 20 (*) Urea Nitrogen 17.0 Creatinine 0.85 GFR Estimate >90 Calcium 8.9 Glucose 381 (*) KETONE BETA-HYDROXYBUTYRATE QUANTITATIVE, RAPID - Abnormal Ketone (Beta-Hydroxybutyrate) Quantitative 0.31 (*) BLOOD GAS VENOUS - Abnormal pH Venous 7.43 pCO2 Venous 41 pO2 Venous 44 Bicarbonate Venous 27 Base Excess/Deficit Venous 2.1 FIO2 0 Oxyhemoglobin Venous 76 (*) O2 Sat, Venous 77.3 (*) GLUCOSE BY METER - Abnormal GLUCOSE BY METER POCT 414 (*) TROPONIN T, HIGH SENSITIVITY - Normal Troponin T, High Sensitivity 10 CBC WITH PLATELETS AND DIFFERENTIAL WBC Count 8.0 RBC Count 4.92 Hemoglobin 15.6 Hematocrit 44.5 MCV 90 MCH 31.7 MCHC 35.1 RDW 14.6 Platelet Count 364 % Neutrophils 81 % Lymphocytes 12 % Monocytes 6 % Eosinophils 0 % Basophils 1 % Immature Granulocytes 0 NRBCs per 100 WBC 0 Absolute Neutrophils 6.4 Absolute Lymphocytes 0.9 Absolute Monocytes 0.5 Absolute Eosinophils 0.0 Absolute Basophils 0.1 Absolute Immature Granulocytes 0.0 Absolute NRBCs 0.0 Imaging No orders to display EKG ECG interpreted by me. Time 1534 Sinus tachycardia rate 115. No ST elevation or depression. Normal intervals. Left axis deviation. No evidence of WPW, Brugada, HOCM, ARVD, ASD, or Wellen's. ED Course Medications Administered Medications losartan-hydrochlorothiazide (HYZAAR) 100-25 mg combo dose (has no administration in time range) sodium chloride 0.9% BOLUS 1,000 mL (0 mLs Intravenous Stopped 04/28/24 1754) amLODIPine (NORVASC) tablet 10 mg (10 mg Oral $Given 04/28/24 161) acetaminophen (TYLENOL) tablet 1,000 mg (1,000 mg Oral $Given 04/28/24 161) insulin aspart (NovoLOG) injection (RAPID ACTING) (10 Units Subcutaneous $Given 04/28/24 1707) sodium chloride 0.9% BOLUS 1,000 mL (1,000 mLs Intravenous $New Bag 04/28/24 161) diazepam (VALIUM) injection 5 mg (5 mg Intravenous $Given 04/28/24 1731) Procedures Procedures Discussion of Management None ED Course Additional Documentation None Medical Decision Making / Diagnosis [facility] Diagnoses: None MIPS None MDM Joao Linares is a 38 year old male with history of type 1 diabetes, on insulin, and hypertension, presenting with concerns of elevated blood pressure and hyperglycemia, vomiting, and feeling weak with standing. On arrival, he is hypertensive and tachycardic. I do not see signs of hypertensive emergency. ECG without ST elevation or ST depression. He has no chest pain and no shortness of breath. He had a troponin drawn from triage which is within normal limits. Do not think we need to repeat troponin. Orderlabs to evaluate for DKA. Patient has hyperglycemia, minimal elevation in ketones and gap is minimally elevated at 20. However CO2 is normal at 22. Furthermore his pH is within normal limits at 7.43.Therefore this does not appear to be DKA. Not HHS. I suspect the lab abnormalities are secondary tothe fact that he was vomiting, and had a binge on alcohol last night. Patient did not take his insul in today and does have hyperglycemia, therefore given rapid acting insulin here. Patient did not take his home blood pressure medication today so I ordered it here. I gave him Tylenol for his headache. He was given IV fluids as he is tachycardic and had been vomiting at home and drank a lot of alcohol last night. Patient is feeling anxious, but does not feel that he is withdrawing. He does not drink every day- reportedly only once per month. Given one-time dose of Valium here to assist with thesymptoms. After Valium, he is feeling improved. He is tolerating p.o. fluids. He also ran out of all of his blood pressure medications and his NovoLog. Therefore, we will provide refill. 1800: patient feeling improved and asking for food. Patient given instruction to take his home insulin tonight and to monitor his blood sugar three times daily. Patient turned over to Dr. Schroeder pending completion of IV rehydration and blood pressure medication, with plan for likely discharge home. Disposition The patient was discharged. Diagnosis ICD-10-CM 1. Hyperglycemia R73.9 2. Nausea and vomiting, unspecified vomiting type R11.2 3. Hypertension, unspecified type I10 4. Encounter for medication refill Z76.0 Discharge Medications New Prescriptions AMLODIPINE (NORVASC) 10 MG TABLET Take 1 tablet (10 mg) by mouth daily. INSULIN ASPART (NOVOLOG PEN) 100 UNIT/ML PEN Inject 1 Units subcutaneously 3 times daily (with meals). LOSARTAN-HYDROCHLOROTHIAZIDE (HYZAAR) 100-25 MG TABLET Take 1 tablet by mouth daily. MD Jamal Lewis Kevin, MD 04/28/24 1810 I repeat his his labs to ensure things are improving. His anion gap improved to 16. His pH 7.38. Bicarb within normal meds. Which is all reassuring. His lactate is 4.6. I suspect secondary to his vomiting and alcohol binge last night. Will give a 3rd L of IV fluid. I do not suspect sepsis. He has no fever. No white count. No shift. No infectious symptoms. Plan is for repeat lactate after 3L of IVF, with still plan for discharge home. Santos Berry MD 04/28/24 184 Also confirmed with patient - he has not taken any substances, drugs, excess medications. Santos Berry MD 04/28/24 229 ER OPERATOR ER OPERATOR ER OPERATOR * Sirena Alamo RN - 04/28/2024 3:18 PM CST Pt arrives with complaint of of hypertension reports systolic >180 and blood sugar >400 morning. Type 2 insulin dependent. States he has not missed any doses of medications including his blood pressure meds. Endorses headache and balance issues he noticed this morning. Polydispia and polyuria. A&Ox4. ER OPERATOR documented in this encounter Plan of Treatment Not on file documented as of this encounter Procedures Procedure Name Priority Date/Time Associated Diagnosis Comments LACTIC ACID WHOLE BLOOD STAT 04/28/2024 9:02 PM SHAKER OPERATOR ISTAT BASIC CHEM ICA HEMATOCRIT POCT STAT 04/28/2024 6:35 PM SHAKER OPERATOR ISTAT GASES LACTATE VENOUS POCT STAT 04/28/2024 6:35 PM SHAKER OPERATOR EKG 12-LEAD, TRACING ONLY STAT 04/28/2024 3:34 PM SHAKER OPERATOR EXTRA TUBE STAT 04/28/2024 3:32 PM SHAKER OPERATOR EXTRA RED TOP TUBE STAT 04/28/2024 3: 32 PM SHAKER OPERATOR EXTRA BLUE TOP TUBE STAT 04/28/2024 3 :32 PM SHAKER OPERATOR CBC WITH PLATELETS AND DIFFERENTIAL STAT 04/28/2024 3:32 PM SHAKER OPERATOR TROPONIN T, HIGH SENSITIVITY STAT 04/28/2024 3:32 PM SHAKER OPERATOR CBC WITH PLATELETS & DIFFERENTIAL STAT 04/28/2024 3:32 PM SHAKER OPERATOR KETONE BETA-HYDROXYBUTYRATE QUANTITATIVE, RAPID STAT 04/28/2024 3:32 PM SHAKER OPERATOR BLOOD GAS VENOUS STAT 04/28/2024 3:32 PM SHAKER OPERATOR BASIC METABOLIC PANEL STAT 04/28/2024 3:32 PM SHAKER OPERATOR GLUCOSE BY METER STAT 04/28/2024 3:26 PM SHAKER OPERATOR documented in this encounter Results * Lactic acid whole blood (04/28/2024 9:02 PM SHAKER OPERATOR) Pathologist [facility] [place] Lactic Acid 1.5 0.7 - 2.0 mmol/L 04/28/2024 9:10 PM SHAKER OPERATOR LABORATORY Blood BLOOD SPECIMEN / Unknown Venipuncture / Unknown 04/28/2024 9:02 PM SHAKER OPERATOR 04/28/2024 9:06 PM SHAKER OPERATOR Santos Berry MD LAB - BLOOD ORDERABLES Final Res ult LABORATORY [facility] Lab [address] [facility] Lab (1st floor, no room number) [place] [address], [facility] * (ABNORMAL) iStat Gases (lactate) venous, POCT (04/28/2024 6:35 PM SHAKER OPERATOR) Pathologist [facility] [place] Lactic Acid POCT 4.6(HH) <=2.0 mmol/L 04/28/2024 6:59 PM SHAKER OPERATOR RH LABORATORY POC Comment:--- Bicarbonate Venous POCT 31(H) 21 - 28 mmol/L 04/28/2024 6:59 PM SHAKER OPERATOR [facility] LABORATORY POC Comment:--- O2 Sat, Venous POCT 35(L) 70 - 75 % 04/28/2024 6:59 PM SHAKER OPERATOR RH LABORATORY POC Comment:--- pCO2 Venous POCT 52(H) 40 - 50 mm Hg 04/28/2024 6:59 PM SHAKER OPERATOR [facility] LABORATORY POC Comment:--- pH Venous POCT 7.38 7.32 - 7.43 04/28/2024 6:59 PM SHAKER OPERATOR RH LABORATORY POC Comment:--- pO2 Venous POCT 22(L) 25 - 47 mm Hg 04/28/2024 6:59 PM SHAKER OPERATOR RH LABORATORY POC Comment:--- Blood, venous BLOOD SPECIMEN / Unknown 04/28/2024 6:35 PM SHAKER OPERATOR 04/28/2024 6:59 PM SHAKER OPERATOR Santos MONTERO POCT Final Result LABORATORY [facility] [address] Lab (1st floor, no room number) [place] [address] * (ABNORMAL) iStat Basic Chem ICA Hematocrit, POCT (04/28/2024 6:35 PM SHAKER OPERATOR) [facility] Chloride POCT 98 94 - 109 mmol/L 04/28/2024 6:42 PM SHAKER OPERATOR RH LABORATORY POC Potassium POCT 5.7(H) 3.4 - 5.3 mmol/L 04/28/2024 6:42 PM SHAKER OPERATOR RH LABORATORY POC Sodium POCT 135 135 - 145 mmol/L 04/28/2024 6:42 PM SHAKER OPERATOR RH LABORATORY POC UREA NITROGEN POCT 22 7 - 30 mg/dL 04/28/2024 6:42 PM SHAKER OPERATOR RH LABORATORY POC Calcium, Ionized Whole Blood POCT 4.3(L) 4.4 - 5.2 mg/dL 04/28/2024 6:42 PM SHAKER OPERATOR RH LABORATORY POC Glucose Whole Blood POCT 122(H) 70 - 99 mg/dL 04/28/2024 6:42 PM SHAKER OPERATOR LABORATORY POC Anion Gap POCT 16.0(H) 3.0 - 14.0 mmol/L 04/28/2024 6:42 PM SHAKER OPERATOR RH LABORATORY POC Hemoglobin POCT 15.3 13.3 - 17.7 g/dL 04/28/2024 6:42 PM SHAKER OPERATOR LABORATORY POC Hematocrit POCT 45 40 - 53 % 6:42 PM SHAKER OPERATOR LABORATORY POC Creatinine POCT 0.8 0.7 - 1.3 mg/dL 04/28/2024 6:42 PM SHAKER OPERATOR LABORATORY POC TOTAL CO2 POCT 28 20 - 32 mmol/L 04/28/2024 6:42 PM SHAKER OPERATOR LABORATORY POC Blood, venous BLOOD SPECIMEN / Unknown 04/28/2024 6:35 PM SHAKER OPERATOR 04/28/2024 6:42 PM SHAKER OPERATOR Santos [place] POCT Final Result LABORATORY [facility] [address] Lab (1st floor, no room number) [place] [address], [facility] * EKG 12 lead (04/28/2024 3:34 PM SHAKER OPERATOR) Systolic Blood Pressure mmHg RADIOLOGY RESULTS Diastolic Blood Pressure mmHg RADIOLOGY RESULTS Ventricular Rate 115 BPM RAD IOLOGY RESULTS Atrial Rate 115 BPM RADIOLOG Y RESULTS HI Interval 150 ms RADIOLOG Y RESULTS QRS Duration 84 ms RADIOLO GY RESULTS QT 312 ms RADIOLOGY RESULTS QTc 431 ms RADIOLOGY RESULTS P [place] 43 degrees RADIOLOGY RESULTS R AXIS -14 degrees RADIOLOGY RESULTS T [place] 40 degrees RADIOLOGY RESULTS Interpretation ECG Sinus tachycardia Otherwise normal ECG When compared with ECG of 06-Jan-2024 01:01, No significant change was found Unconfirmed report - interpretation of this ECG is computer generated - see medical record for final interpretation Confirmed by - EMERGENCY ROOM, PHYSICIAN ([id number]), editor in chief NATALIA NORWOOD [id number]) on 04/29/2024 7:52:59 AM RADIOLOGY RESULTS 04/28/2024 3:34 PM SHAKER OPERATOR 04/29/2024 7:52 AM SHAKER OPERATOR us Santos Berry MD ECG ORDERABLES Edited Result - Final RADIOLOGY RESULTS * Troponin T, High Sensitivity (04/28/2024 3:32 PM SHAKER OPERATOR) Troponin T, High Sensitivity 10 <=22 ng/L 04/28/2024 4:06 PM SHAKER OPERATOR LABORATORY Comment: Either a High Sensitivity Troponin [...] Unknown Venipuncture / Unknown 04/28/2024 3:32 PM SHAKER OPERATOR 04/28/2024 3:42 PM SHAKER OPERATOR us Santos Berry MD LAB - BLOOD ORDERABLES Final Res ult Performing Organization Address City/[facility]/ZIP Co de Phone Number [facility] [address] Lab (1st floor, no room number) [address] * Extra Red Top Tube (04/28/2024 3:32 PM SHAKER OPERATOR) Hold Specimen [facility] 04/28/2024 4:46 PM SHAKER OPERATOR RH LABORATORY Blood BLOOD SPECIMEN / Unknown Venipuncture / Unknown 04/28/2024 3:32 PM SHAKER OPERATOR 04/28/2024 3:42 PM SHAKER OPERATOR us Santos Berry MD LAB - BLOOD ORDERABLES Final Res ult Performing Organization Address [facility]/ZIP Co de Phone Number [facility] [address] Lab (1st floor, no room number) [address] * Extra Blue Top Tube (04/28/2024 3:32 PM SHAKER OPERATOR) Hold Specimen [facility] 04/28/2024 4:46 PM SHAKER OPERATOR LABORATORY Blood BLOOD SPECIMEN / Unknown Venipuncture / Unknown 04/28/2024 3:32 PM SHAKER OPERATOR 04/28/2024 3:42 PM SHAKER OPERATOR us Santos Berry MD LAB - BLOOD ORDERABLES Final Res ult Performing Organization Address City/[facility]/ZIP Co de Phone Number [facility] [address] Lab (1st floor, no room number) [address] * CBC with platelets and differential (04/28/2024 3:32 PM SHAKER OPERATOR) WBC Count 8.0 4.0 - 11.0 10e3/uL 04/28/2024 3:45 PM SHAKER OPERATOR RH LABORATORY RBC Count 4.92 4.40 - 5.90 10e6/uL 04/28/2024 3:45 PM SHAKER OPERATOR RH LABORATORY Hemoglobin 15.6 13.3 - 17.7 g/dL 04/28/2024 3:45 PM SHAKER OPERATOR RH LABORATORY Hematocrit 44.5 40.0 - 53.0 % 04/28/2024 3:45 PM SHAKER OPERATOR RH LABORATORY MCV 90 78 - 100 fL 04/28/2024 3:45 PM SHAKER OPERATOR RH LABORATORY MCH 31.7 26.5 - 33.0 pg 04/28/2024 3:45 PM SHAKER OPERATOR RH LABORATORY MCHC 35.1 31.5 - 36.5 g/dL 04/28/2024 3:45 PM SHAKER OPERATOR RH LABORATORY RDW 14.6 10.0 - 15.0 % 04/28/2024 3:45 PM SHAKER OPERATOR [facility] Platelet Count 364 150 - 450 10e3/uL 04/28/2024 3:45 PM SHAKER OPERATOR [facility] % Neutrophils 81 % 04/28/2024 3:45 PM SHAKER OPERATOR [facility] % Lymphocytes 12 % 04/28/2024 3:45 PM SHAKER OPERATOR [facility] % Monocytes 6 % 04/28/2024 3:45 PM SHAKER OPERATOR [facility] % Eosinophils 0 % 04/28/2024 3:45 PM SHAKER OPERATOR [facility] % Basophils 1 % 04/28/2024 3:45 PM SHAKER OPERATOR [facility] % Immature Granulocytes 0 % 04/28/2024 3:45 PM SHAKER OPERATOR [facility] NRBCs per 100 WBC 0 <1 /100 025 3:45 PM SHAKER OPERATOR [facility] Absolute Neutrophils 6.4 1.6 - 8.3 10e3/uL 04/28/2024 3:45 PM SHAKER OPERATOR [facility] Absolute Lymphocytes 0.9 0.8 - 5.3 10e3/uL 04/28/2024 3:45 PM SHAKER OPERATOR [facility] Absolute Monocytes 0.5 0.0 - 1.3 10e3/uL 04/28/2024 3:45 PM SHAKER OPERATOR [facility] Absolute Eosinophils 0.0 0.0 - 0.7 10e3/uL 04/28/2024 3:45 PM SHAKER OPERATOR [facility] Absolute Basophils 0.1 0.0 - 0.2 10e3/uL 04/28/2024 3:45 PM SHAKER OPERATOR [facility] Absolute Immature Granulocytes 0.0 <=0.4 10e3/uL 04/28/2024 3:45 PM SHAKER OPERATOR [facility] Absolute NRBCs 0.0 10e3/uL 04/28/2024 3:45 PM SHAKER OPERATOR [facility] Blood BLOOD SPECIMEN / Unknown Venipuncture / Unknown 04/28/2024 3:32 PM SHAKER OPERATOR 04/28/2024 3:42 PM SHAKER OPERATOR Santos Berry MD LAB - BLOOD ORDERABLES Final Res ult [facility] [address] Lab (1st floor, no room number) [place] [address], [facility] * (ABNORMAL) Blood gas venous (04/28/2024 3:32 PM SHAKER OPERATOR) pH Venous 7.43 7.32 - 7.43 04/28/2024 4:02 PM SHAKER OPERATOR [facility] pCO2 Venous 41 40 - 50 mm Hg 04/28/2024 4:02 PM SHAKER OPERATOR [facility] pO2 Venous 44 25 - 47 mm Hg 04/28/2024 4:02 PM SHAKER OPERATOR [facility] Bicarbonate Venous 27 21 - 28 mmol/L 04/28/2024 4:02 PM SHAKER OPERATOR [facility] Base Excess/Deficit Venous 2.1 -3.0 - 3.0 mmol/L 04/28/2024 4:02 PM SHAKER OPERATOR [facility] FIO2 0 CHADD 04/28/2024 4:02 PM SHAKER OPERATOR [facility] Comment:room air Oxyhemoglobin Venous 76(H) 70 - 75 % 04/28/2024 4:02 PM SHAKER OPERATOR [facility] O2 Sat, Venous 77.3(H) 70.0 - 75.0 % 04/28/2024 4:02 PM SHAKER OPERATOR [facility] Blood, venous BLOOD SPECIMEN / Unknown Venipuncture / Unknown 04/28/2024 3:32 PM SHAKER OPERATOR 04/28/2024 3:42 PM SHAKER OPERATOR Narrative [facility] - 04/28/2024 4:02 PM SHAKER OPERATOR In healthy individuals, oxyhemoglobin (O2Hb) and oxygen saturation (SO2) are approximately equal. In the presence of dyshemoglobins, oxyhemoglobin can be considerably lower than oxygen saturation. us Santos Berry MD LAB - BLOOD ORDERABLES Final Res ult Performing Organization Address City/[facility]/ZIP Co de Phone Number LABORATORY [facility] [address] Lab (1st floor, no room number) [address] * (ABNORMAL) Ketone Beta-Hydroxybutyrate Quantitative (04/28/2024 3:32 PM SHAKER OPERATOR) Ketone (Beta-Hydroxybuty rate) Quantitative 0.31(H) <=0.30 mmol/L 04/28/2024 4:06 PM SHAKER OPERATOR [facility]AT[facility] Blood BLOOD SPECIMEN / Unknown Venipuncture / Unknown 04/28/2024 3:32 PM SHAKER OPERATOR 04/28/2024 3:42 PM SHAKER OPERATOR us Santos Berry MD LAB - BLOOD ORDERABLES Final Res ult Performing Organization Address [facility]/ZIP Co de Phone Number LABORATORY [facility] [address] [facility] Lab (1st floor, no room number) [address] * (ABNORMAL) Basic metabolic panel (04/28/2024 3:32 PM SHAKER OPERATOR) Sodium 137 135 - 145 mmol/L 04/28/2024 4:06 PM [facility] Potassium 4.3 3.4 - 5.3 mmol/L 04/28/2024 4:06 PM [facility] Chloride 95(L) 98 - 107 mmol/L 04/28/2024 4:06 PM [facility] Carbon Dioxide (CO2) 22 22 - 29 mmol/L 04/28/2024 4:06 PM [facility] Anion Gap 20(H) 7 - 15 mmol/L 04/28/2024 4:06 PM [facility] Urea Nitrogen 17.0 6.0 - 20.0 mg/dL 04/28/2024 4:06 PM [facility] Creatinine 0.85 0.67 - 1.17 mg/dL 04/28/2024 4:06 PM [facility] GFR Estimate >90 >60 mL/min/1.7 3m2 04/28/2024 4:06 PM [facility] Comment:eGFR calculated usin g 2020 CKD-EPI equation. Calcium 8.9 8.8 - 10.4 mg/dL 04/28/2024 4:06 PM SHAKER OPERATOR [facility] Comment:Reference intervals for this test were updated on 11/03/2023 to reflect our healthy population more accurately. There may be differences in the flagging of prior results with similar values performed with this method. Those prior results can be interpreted in the context of the updated reference intervals. Glucose 381(H) 70 - 99 mg/dL 04/28/2024 4:06 PM SHAKER OPERATOR LABORATORY Blood BLOOD SPECIMEN / Unknown Venipuncture / Unknown 04/28/2024 3:32 PM SHAKER OPERATOR 04/28/2024 3:42 PM SHAKER OPERATOR us Santos Berry MD LAB - BLOOD ORDERABLES Final Res ult [facility] Lab [address] Lab (1st floor, no room number) [place] [address] * (ABNORMAL) Glucose by meter (04/28/2024 3:26 PM SHAKER OPERATOR) [facility] GLUCOSE BY METER POCT 414(H) 70 - 99 mg/dL 04/28/2024 3:33 PM SHAKER OPERATOR LABORATORY POC Blood, Capillary BLOOD SPECIMEN / Unknown 04/28/2024 3:26 PM SHAKER OPERATOR 04/28/2024 3:33 PM SHAKER OPERATOR us Santos Berry MD LAB - BEAKER POCT Final Result [facility] Lab [address] Lab (1st floor, no room number) [place] [address] documented in this encounter Visit Diagnoses Diagnosis Hyperglycemia Other abnormal glucose Nausea and vomiting, unspecified vomiting type Hypertension, unspecified type Encounter for medication refill Issue of repeat prescriptions documented in this encounter Administered Medications Inactive Administered Medications - up to 3 most recent administrations Medication Order MAR Action Action Date Dose Rate Site acetaminophen (TYLENOL) tablet 1,000 mg 1,000 mg, Oral, ONCE, On [facility] 04/28/24 at 1605, For 1 dose, Maximum acetaminophen dose from all sources = 75 mg/kg/day not to exceed 4 gram $Given 04/28/2024 4:17 PM SHAKER OPERATOR 1,000 mg amLODIPine (NORVASC) tablet 10 mg 10 mg, Oral, ONCE, On [facility] 04/28/24 at 1545, For 1 dose $Given 04/28/2024 4:17 PM SHAKER OPERATOR 10 mg diazepam (VALIUM) injection 5 mg 5 mg, Intravenous, Administer over 1-4 Minutes, ONCE, On [facility] 04/28/24 at 1730, For 1 dose, This drug may cause significant respiratory depression. Monitor respiratory status and vital signs carefully for 1 hour after each dose. $Given 04/28/2024 5:31 PM SHAKER OPERATOR 5 mg insulin aspart (NovoLOG) injection (RAPID ACTING) 10 Units, Subcutaneous, ONCE, On [facility] 04/28/24 at 1615, For 1 dose $Given 04/28/2024 5:07 PM SHAKER OPERATOR 10 Units lactated ringers BOLUS 1,000 mL Intravenous, 1,000 mL, ONCE, at 1,000 mL/hr, Administer over 1 Hours, On [facility] 04/28/24 at 1845, For 1 dose $New Bag 04/28/2024 7:18 PM SHAKER OPERATOR 1,000 mLs 1000 mL/hr losartan-hydrochlorothiazide (HYZAAR) 100-25 mg combo dose Oral, ONCE, On [facility] 04/28/24 at 1545, For 1 dose, Give both components for Hyzaar product $Given 04/28/2024 9:52 PM SHAKER OPERATOR sodium chloride 0.9% BOLUS 1,000 mL Intravenous, 1,000 mL, ONCE, at 1,000 mL/hr, Administer over 1 Hours, On [facility] 04/28/24 at 1530, For 1 dose $New Bag 04/28/2024 3:33 PM SHAKER OPERATOR 1,000 mLs 1000 mL/hr sodium chloride 0.9% BOLUS 1,000 mL Intravenous, 1,000 mL, ONCE, at 1,000 mL/hr, Administer over 1 Hours, On [facility] 04/28/24 at 1615, For 1 dose $New Bag 04/28/2024 4:17 PM SHAKER OPERATOR 1,000 mLs 1000 mL/hr documented in this encounter Active and Recently Administered Medications Times are shown in SHAKER OPERATOR. Scheduled Medication Order 04/26/2024 04/27/202404/28/2024 acetaminophen (TYLENOL) tablet 1,000 mg (COMPLETED) 1,000 mg, Oral, ONCE, On [facility] 04/28/24 at 1605, For 1 dose, Maximum acetaminophen dose from all sources = 75 mg/kg/day not to exceed 4 gram 1617 ($Given - Provi zakiya: Marlee Bach RN) amLODIPine (NORVASC) tablet 10 mg (COMPLETED) 10 mg, Oral, ONCE, On [facility] 04/28/24 at 1545, For 1 dose 1617 ($Given - Provi zakiya: Marlee Bach RN) diazepam (VALIUM) injection 5 mg (COMPLETED) 5 mg, Intravenous, Administer over 1-4 Minutes, ONCE, On [facility] 04/28/24 at 1730, For 1 dose, This drug may cause significant respiratory depression. Monitor respiratory status and vital signs carefully for 1 hour after each dose. 1731 ($Given - Provi zakiya: Indigo Pierce RN) insulin aspart (NovoLOG) injection (RAPID ACTING) (COMPLETED) 10 Units, Subcutaneous, ONCE, On [facility] 04/28/24 at 1615, For 1 dose 1707 ($Given - Provi zakiya: Marlee Bach RN) lactated ringers BOLUS 1,000 mL (COMPLETED) Intravenous, 1,000 mL, ONCE, at 1,000 mL/hr, Administer over 1 Hours, On [facility] 04/28/24 at 1845, For 1 dose 1918 ($New Bag - Pro vider: Marlee Bach RN)2147 (Stopped - Provider: Rosalinda Chen RN) losartan-hydrochlorothiazide (HYZAAR) 100-25 mg combo dose (COMPLETED) Oral, ONCE, On [facility] 04/28/24 at 1545, For 1 dose, Give both components for Hyzaar product 215 ($Given - Provi zakiya: Salma Loera RN - Comment: Not given by prior RN earlier in day) sodium chloride 0.9% BOLUS 1,000 mL (COMPLETED) Intravenous, 1,000 mL, ONCE, at 1,000 mL/hr, Administer over 1 Hours, On [facility] 04/28/24 at 1530, For 1 dose 1533 ($New Bag - Pro vider: Marlee Bach RN)1754 (Stopped - Provider: Marlee Bach RN) sodium chloride 0.9% BOLUS 1,000 mL (COMPLETED) Intravenous, 1,000 mL, ONCE, at 1,000 mL/hr, Administer over 1 Hours, On [facility] 04/28/24 at 1615, For 1 dose 1617 ($New Bag - Pro vider: Marlee Bach RN)1920 (Stopped - Provider: Marlee Bach RN) documented in this encounter Care Teams Ortho/Prosthetic Aide Relationship Specialty Start Date End Date No Ref-Primary, Physician PCP - General 02/24/23 [place] [address] [place], [place] [address] Internal Medicine 03/27/16 Alicia Corbett MD [address] [place] [id number] MD Ophthalmology 03/27/16 Guillermina Victoria RN [address] [place], [place] [address] Diabetes Education 03/27/[address] [place], [place] 4944[address] Registered Dietitian Nutrition 03/27/16 Rowan Barry MD [address] [place], [place] [id number] INTERNAL MEDICINE - ENDOCRINOLOGY, DIABETES & METABOLISM 03/27/16 Guillermina Victoria, RN [address] [place], [place] 3985[address] Office Assistant Diabetes Education 12/26/20 Meliza Buchanan, PA-C [address] [place] [address] [place] [address] Physician Restaurant Assistant Dermatology 04/29/23 Александр Scott MD [facility] [address] [place] [address] Referring Physician Emergency Medicine 04/29/23 Harmony Maldonado MD [address] [address] Hospitalist Internal Medicine 11/23/23 documented as of this encounter
--- OUTSIDE RECORDS SUMMARY | 2024-05-18 16:37 | XMS_ITS | Encounter Summary ---
Author Organization [facility] Address [address] [place] [address] Care Team Providers Care Sifter And Miller Name Role Phone Basil Epps MD Primary Care Provider Unavaila Orin Vásquez MD Unavailable [phone] Alicia Corbett MD Unavailable [phone] Guillermina Victoria RN Unavailable [phone] Unavailable [phone] Rowan Barry MD Unavailable Guillermina Victoria RN Unavailable [phone] Rowan Barry MD Unavailable No Ref-Primary, Physician Primary Care Provider Meliza Buchanan PA-C Unavailable [phone] Александр Scott MD Unavailable [phone] Harmony Maldonado MD Unavailable [phone] Encounter Details Date Type Department Care Team (Late st Contact Info) Description 03/01/2021 Documentation Only INTERFACED REPORT Unknown, Provider Social History Tobacco Use Types Packs/Day Years Used Date Smoking Tobacco: Former Cigarettes 0.3 15 1 05/28/1998 - 03/27/2014 Smokeless Tobacco: Former Alcohol Use Standard Drinks/Week Comments Not Currently 0 (1 standard drink = 0.6 oz pure alcohol) used to drink a couple beers infrequently but has now stopped PHQ-2 Answer Date Recorded PHQ-2 Score 0 04/28/2018 Sex and Gender Information Value Date Recorded Sex Assigned at Not on file 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 No / Unsure 03/01/2021 10:32 AM TUCK POINTER documented as of this encounter Plan of Treatment Not on file documented as of this encounter Visit Diagnoses Not on filedocumented in this encounter Additional Health Concerns Infection Onset Date Last Indicated Resolved Time Rule Out COVID-19 01/05/2024 01/05/2024 01/05/2024 9:04 PM CDT documented as of this encounter Care Teams Sifter And Miller Relationship Specialty Start Date End Date Basil Epps MD PCP - General 12/29/04 02/10/23 No Ref-Primary, Physician PCP - General 02/24/23 [place] [address] [place] [address] Internal Medicine 03/27/16 Alicia Corbett MD [address] [place] [address] Ophthalmology 03/27/16 Guillermina Victoria, RN [address] [place] [address]79805 Diabetes Education 03/27/[address] [place] [address] [id number] Registered Dietitian Nutrition 03/27/16 Rowan Barry MD [address] [place] [address] [id number] INTERNAL MEDICINE - ENDOCRINOLOGY, DIABETES & METABOLISM 03/27/16 Guillermina Victoria RN [address] [place], [place] [address] Woodyard Crane Operator Diabetes Education 12/26/20 Rowan Brary MD [address] [place] [address] [id number] Assigned Endocrinology Provider 01/06/21 06/27/22 Meliza Buchanan, PA-C [address] [place], [place] [address] Physician Datawarehouse Developer Dermatology 04/29/23 Александр Scott MD [facility] [address] [place], [place] [address] Referring Physician Emergency Medicine 04/29/23 Harmony Maldonado MD [address] [place] [place] [id number] Hospitalist Internal Medicine 11/23/23 documented as of this encounter
--- OUTSIDE RECORDS SUMMARY | 2024-05-18 16:37 | XMS_ITS | Encounter Summary ---
Author Organization [facility] Address [address] [place] [address] Care Team Providers Care Waiter/Waitress Tavern Name Role Phone Orin Monk MD Unavailable Alicia Corbett MD Unavailable [phone] Guillermina Victoria RN Unavailable [phone] Unavailable [phone] Rowan Barry MD Unavailable Guillermina Victoria RN Unavailable [phone] Ref-Primary, Physician Primary Care Provider Meliza Buchanan PA-C Unavailable [phone] Александр Scott MD Unavailable [phone] Harmony Maldonado MD Unavailable [phone] Encounter Details Date Type Department Care Team (Latest Contact Info) Description 04/28/2024 Travel Social History Tobacco Use Types Packs/Day Years [...] on file 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 Gender Identity Not on file Sexual Orientation Not on file documented as of this encounter Plan of Treatment Not on file documented as of this encounter Visit Diagnoses Not on filedocumented in this encounter Care Teams Waiter/Waitress Tavern Relationship Specialty Start Date End Date No Ref-Primary, Physician PCP - General 02/24/23 [place] [address] [place] [address] Internal Medicine 03/27/16 Alicia Corbett MD [address] [place], [place] [id number] MD Ophthalmology 03/27/16 Guillermina Victoria, RN [address] [place], [place] [phone] Diabetes Education 03/27/[address] [place], [place] [address] Registered Dietitian Nutrition 03/27/16 Rowan Barry MD [address] [place], [place] [address] INTERNAL MEDICINE - ENDOCRINOLOGY, DIABETES & METABOLISM 03/27/16 Guillermina Victoria, RN [address] [place], [place] [phone] Ager Operator Diabetes Education 12/26/20 Meliza Buchanan, PAClarissaC [address] [address] Physician Electrical Appliance Mechanic Dermatology 04/29/23 Александр Scott MD [facility] [address] [facility] [place] [address] Referring Physician Emergency Medicine 04/29/23 Harmony Maldonado MD [address] [address] Hospitalist Internal Medicine 11/23/23 documented as of this encounter
[2024-05-18 17:22] LABS: Glucose, Point-of-Care* 185 mg/dl (60-115)
[2024-05-18 18:03] LABS: Glucose, Point-of-Care* 134 mg/dl (60-115)
== END 2024-05-18 18:11 | disposition home or self-care (01) ==
PROVIDERS: Emergency Provider Emergency Medicine Emergency Medical Services
DX: K52.9 Noninfective gastroenteritis and colitis, unspecified (principal); E10.65 Type 1 diabetes mellitus with hyperglycemia; Z79.4 Long term (current) use of insulin
CPT/HCPCS: 36415; 80048; 81001; 82803; 82947; 82962; 83735; 85025; 93005; 96374; 99284; J1815; J2405; J7030